=== PATIENT | male | born 1950 | race Two or more races ===

== ENCOUNTER 2021-01-15 18:53 | Inpatient (IN) | payer MEDICARE, OTHER ==
[~2021-01-15] VITALS: Ht 182.9 cm; Wt 105.7 kg
[2021-01-15 19:41] LABS: Basophils # (auto) 0 10 ^3/uL (0-0.2); Basophils % (auto) 0.3 % (0.0-2.0); Eosinophils # (auto) 0 10 ^3/uL (0-0.8); Eosinophils % (auto) 0.3 % (0.0-7.0); Hematocrit 38.1 % (41.0-53.0); Hemoglobin 12.5 g/dL (13.5-17.5); Lymphocytes # (auto) 0.7 10 ^3/uL (0.4-5.4); Lymphocytes % (auto) 5.7 % (10.0-50.0); Mean Corpuscular Hemoglobin 31.6 pg (28.0-32.0); Mean Corpuscular Volume 95.8 fL (80.0-100.0); Monocytes # (auto) 1.4 10 ^3/uL (0-1.3); Monocytes % (auto) 10.8 % (0.0-12.0); Neutrophils # (auto) 10.6 10 ^3/uL (1.6-8.6); Neutrophils % (auto) 82.9 % (37.0-80.0); Red Blood Cells 3.97 10^6/uL (4.5-5.90); Red Cell Distribution Width 13.9 % (11.8-14.3); White Blood Cell 12.8 10^3/uL (4.4-10.8)
[2021-01-15 20:28] LABS: Albumin 3.3 g/dL (3.4-5.0); Anion Gap 6 (5-15); Blood Alcohol < 3.0 mg/dL (0-5); Blood Urea Nitrogen 12 mg/dL (7-18); Calcium 8.7 mg/dL (8.5-10.1); Carbon Dioxide 22 mmol/L (21-32); Chloride 108 mmol/L (98-107); Glucose 197 mg/dL (74-106); Potassium 3.8 mmol/L (3.5-5.1); Sodium 136 mmol/L (136-145)
[2021-01-15 20:34] LABS: Alanine Aminotransferase 26 U/L (16-61); Alkaline Phosphatase 108 U/L (45-117); Aspartate Aminotransferase 19 U/L (15-37); BUN/Creatinine Ratio 16.9; GFR African American 141 mL/min; GFR Non-African American 117 mL/min; Total Protein 6.7 g/dL (6.4-8.2)
[2021-01-15] MEDS ORDERED: SODIUM CHLORIDE 0.9% 1,000 ML IV ONE (22:45)
[2021-01-15 23:34] LABS: Urine Bacteria FEW /hpf (None Seen); Urine Blood Negative /uL (Negative); Urine Mucus FEW (None Seen); Urine Specific Gravity 1.018 (1.001-1.035); Urine WBC 19 /hpf (0 - 3)
[2021-01-16 00:03] LABS: Alcohol, Urine < 3.0 mg/dL (0-10); Amphetamine Screen, Urine NEGATIVE (NEGATIVE); Barbiturate Scree,Urine NEGATIVE (NEGATIVE); Benzodiazephine Screen, Urine NEGATIVE (NEGATIVE); Cannabinoid Screen, Urine NEGATIVE (NEGATIVE); Cocaine Screen, Urine NEGATIVE (NEGATIVE); Opiate Scree,Urine NEGATIVE (NEGATIVE); Phencyclidine Screen, Urine NEGATIVE (NEGATIVE)
[2021-01-16] MEDS ORDERED: cefTRIAXone 1GM/50ML D5W 50 ML IV ONE ×2 (00:15→11:15)
[2021-01-16] MEDS ORDERED: DEXTROSE (50%) 50ML SYRG IV PRN (01:00)
[2021-01-16] MEDS ORDERED: TEMAZEPAM 15 MG CAP PO PRN (01:00)
[2021-01-16] MEDS ORDERED: METOPROLOL SUCCINATE XL 50 MG TAB PO ONE (01:00)
[2021-01-16] MEDS ORDERED: ONDANSETRON HCL 4 MG/2 ML VIAL IV PRN (01:00)
[2021-01-16 02:01] LABS: INR 1.26 (0.9-1.15); Partial Thromboplastin Time 29.3 sec (23.6-33.0)
[2021-01-16 04:35] VITALS: BP 128/82
[2021-01-16 04:42] VITALS: BP 128/82
[2021-01-16] MEDS: InsuLIN REG 1unit/0.01ml Soln (100units/ml) SC SCH ×4 (07:00→22:25)
[2021-01-16] MEDS: ACCU-CHEK COMFORT CURVE STRIP VI SCH ×4 (07:00→22:23)
[2021-01-16 08:00] VITALS: BP 128/75
[2021-01-16] MEDS ORDERED: LOSA25TA38 PO (10:24)
[2021-01-16] MEDS ORDERED: OXYC-648 PO (10:24)
[2021-01-16] MEDS ORDERED: LOSA-69 PO (10:24)
[2021-01-16] MEDS ORDERED: PREG100C PO (10:24)
[2021-01-16] MEDS ORDERED: PANT40T PO (10:24)
[2021-01-16] MEDS ORDERED: TAMS0.4C36 PO (10:24)
[2021-01-16] MEDS ORDERED: ATOR10TA52 PO (10:24)
[2021-01-16] MEDS ORDERED: APIX5TAB PO (10:24)
[2021-01-16] MEDS ORDERED: OXY5T PO ×2 (10:24→16:21)
[2021-01-16] MEDS ORDERED: GLIP5TAB12 PO (10:24)
[2021-01-16] MEDS ORDERED: oxyCODONE ER 10 MG TAB PO ONE (10:45)
[2021-01-16] MEDS: APIXABAN 5 MG TAB PO SCH ×2 (11:25→22:23)
[2021-01-16] MEDS: METOPROLOL SUCCINATE XL 50 MG TAB PO SCH (11:25)
[2021-01-16] MEDS: PANTOPRAZOLE 40 MG TAB PO SCH (11:25)
[2021-01-16] MEDS: LOSARTAN POTASSIUM 50 MG TAB PO SCH (11:45)
[2021-01-16 14:00] VITALS: BP 106/71
[2021-01-16] MEDS: PREGABALIN 25 MG CAP PO SCH ×2 (14:20→22:24)
[2021-01-16] MEDS ORDERED: TOPI15CA10 PO (16:34)
[2021-01-16] MEDS ORDERED: TOPI25TA43 PO (16:36)
[2021-01-16 17:00] VITALS: BP 129/83
[2021-01-16] MEDS ORDERED: TAMSULOSIN HYDROCHLORIDE 0.4 MG CAP PO SCH (18:00)
[2021-01-16 22:00] VITALS: BP 113/77
[2021-01-16] MEDS: oxyCODONE ER 10 MG TAB PO SCH (22:00)
[2021-01-16] MEDS ORDERED: ATORVASTATIN 20 MG TAB PO SCH (22:00)
[2021-01-17 05:42] VITALS: BP 105/76
[2021-01-17] MEDS: PREGABALIN 25 MG CAP PO SCH (06:28)
[2021-01-17] MEDS: InsuLIN REG 1unit/0.01ml Soln (100units/ml) SC SCH (06:29)
[2021-01-17] MEDS: ACCU-CHEK COMFORT CURVE STRIP VI SCH ×2 (06:30→14:44)
[2021-01-17 07:11] LABS: Basophils # (auto) 0 10 ^3/uL (0-0.2); Basophils % (auto) 0.5 % (0.0-2.0); Eosinophils # (auto) 0.1 10 ^3/uL (0-0.8); Eosinophils % (auto) 0.7 % (0.0-7.0); Hematocrit 35.6 % (41.0-53.0); Hemoglobin 12.4 g/dL (13.5-17.5); Lymphocytes # (auto) 0.7 10 ^3/uL (0.4-5.4); Lymphocytes % (auto) 6.3 % (10.0-50.0); Mean Corpuscular Hemoglobin 33.3 pg (28.0-32.0); Mean Corpuscular Hgb Conc. 34.7 g/dL (32.0-36.0); Monocytes # (auto) 1.4 10 ^3/uL (0-1.3); Monocytes % (auto) 13.1 % (0.0-12.0); Neutrophils # (auto) 8.3 10 ^3/uL (1.6-8.6); Neutrophils % (auto) 79.4 % (37.0-80.0); Nucleated Red Blood Cells % 0.1 %; Red Blood Cells 3.71 10^6/uL (4.5-5.90); Red Cell Distribution Width 13.5 % (11.8-14.3); White Blood Cell 10.4 10^3/uL (4.4-10.8)
[2021-01-17 07:28] LABS: BUN/Creatinine Ratio 17.5; Calcium 8.9 mg/dL (8.5-10.1); Magnesium 2.3 mg/dL (1.6-2.6); Potassium 3.9 mmol/L (3.5-5.1)
[2021-01-17 08:00] VITALS: BP 99/69
[2021-01-17] MEDS ORDERED: cefTRIAXone 1GM/50ML D5W 50 ML IV SCH (09:00)
[2021-01-17] MEDS: LOSARTAN POTASSIUM 50 MG TAB PO SCH (11:06)
[2021-01-17] MEDS: APIXABAN 5 MG TAB PO SCH (11:06)
[2021-01-17] MEDS: METOPROLOL SUCCINATE XL 50 MG TAB PO SCH (11:07)
[2021-01-17] MEDS: PANTOPRAZOLE 40 MG TAB PO SCH (11:07)
[2021-01-17] MEDS: oxyCODONE ER 10 MG TAB PO SCH (11:07)
[2021-01-17 14:12] VITALS: BP 123/72
== END 2021-01-17 15:00 | disposition home or self-care (01) | DRG 871 ==
LOC: EDUNIT# 18:53 → EDBD 18:53 → ER 18:57 → OVERFLOW 01-16 00:59 → CENTRAL 01-16 04:19
PROVIDERS: ADMIT Nurse Practitioner; ATTEND Internal Medicine
DX: A41.9 Sepsis, unspecified organism (principal); I50.31 Acute diastolic (congestive) heart failure; G92.8 Other toxic encephalopathy; N39.0 Urinary tract infection, site not specified; I48.20 Chronic atrial fibrillation, unspecified; D68.69 Other thrombophilia; D68.9 Coagulation defect, unspecified; E11.9 Type 2 diabetes mellitus without complications; E66.9 Obesity, unspecified; E78.5 Hyperlipidemia, unspecified; Z20.822 Contact with and (suspected) exposure to COVID-19; G89.4 Chronic pain syndrome; N40.0 Benign prostatic hyperplasia without lower urinary tract symptoms; I11.0 Hypertensive heart disease with heart failure; R09.89 Other specified symptoms and signs involving the circulatory and respiratory systems; Z80.0 Family history of malignant neoplasm of digestive organs; Z80.1 Family history of malignant neoplasm of trachea, bronchus and lung; Z82.49 Family history of ischemic heart disease and other diseases of the circulatory system; Z95.3 Presence of xenogenic heart valve; Z88.1 Allergy status to other antibiotic agents; Z88.5 Allergy status to narcotic agent; Z91.040 Latex allergy status; Z68.31 Body mass index [BMI] 31.0-31.9, adult
CPT/HCPCS: 36415; 70450; 71045; 80048; 80053; 80307; 80320; 81001; 82550; 82962; 83605; 83735; 83880; 84443; 84484; 85025; 85379; 85610; 85730; 87040; 87086; 87426; 93005; 93306; 96365; G0378; J0696; J1815

== ENCOUNTER 2024-03-15 18:29 | Inpatient (IN) | payer MEDICARE, BC ==
[~2024-03-15] VITALS: Ht 185.4 cm; Wt 97.4 kg
[~2024-03-15 18:29] MED LIST: APIX5TAB PO; ATOR10TA52 PO; GLIP5TAB21 PO; LOSA-533 PO; LOSA-534 PO; OXY5T PO; OXYC-648 PO; PANT40T PO; PREG100C PO; TAMS0.4C39 PO; TOPI15CA10 PO; TOPI25TA43 PO
--- NOTE | 2024-03-15 18:51 | ED.PDOC ---
History of Present Illness HPI Comments 74 male went down for nap around 1pm. He woke up with AMS. Per ems GCS was 7 on their arrival and he was in SVT. Was given adenosine 6 then 12 then converted to sinus. BGC was 20. He was given D50 250mL. At this time patient states he feels good. Has no complaints. Denies weakness, cp, sob, palpitations, recent illness though he did suffer from stroke around thanksgiving time. Patient takes glyburide. He at a sandwich and some crackers before his nap at 1pm. Time Seen by MD: 18:44 Primary Care Provider: MALLORIE Allergies: Coded Allergies: Acetaminophen (Verified Allergy, Unknown, 01/15/21) Hydrocodone (Verified Allergy, Unknown, 01/15/21) Latex (Verified Allergy, Unknown, 01/15/21) Penicillins (Verified Allergy, Unknown, 03/15/24) Uncoded Allergies: SHELLFISH (Allergy, Unknown, 03/15/24) Home Meds Reported Medications Topiramate (Topamax) 25 Mg Tab, 1 TAB PO BID, #60 TAB 2 Refills 01/16/21 Topiramate (Topiramate) 15 Mg Cap, 25 MG PO DAILY@DINNER, CAP 01/16/21 Oxycodone Hcl (OXYCODONE HCL) 5 Mg Tb, 7.5 MG PO BIDP PRN for PAIN SCALE 7 THRU 10, #1.5 TAB 01/16/21 Pregabalin (Lyrica) 100 Mg Cap, 1 CAP PO TID, #90 CAP 2 Refills 01/16/21 Oxycodone HCl (Oxycodone HCl ER) 15 Mg Tab, 15 MG PO BIDP, TAB 01/16/21 Tamsulosin Hcl (Tamsulosin Hcl) 0.4 Mg Cap, 0.4 MG PO QPM for 30 Days, MG 01/16/21 Glipizide (Glipizide) 5 Mg Tab, 5 MG PO DAILY for 30 Days, MG 01/16/21 Pantoprazole Sodium Sesquihydr (Pantoprazole Sodium) 40 Mg Tab, 40 MG PO DAILY, TAB 01/16/21 Losartan Potassium (Losartan Potassium) 25 Mg Tab, 25 MG PO QPM for 30 Days, MG 01/16/21 Losartan Potassium (Losartan Potassium) 50 Mg Tab, 50 MG PO QAM for 30 Days, MG 01/16/21 Atorvastatin Calcium (ATORVASTATIN CALCIUM) 10 Mg Tab, 1 TAB PO HS, #30 TAB 5 Refills 01/16/21 Apixaban Base (ELIQUIS) 5 Mg Tab, 5 MG PO BID, TAB 01/16/21 Review of Systems: REVIEW OF SYSTEMS: No fever, no chills, or fatigue HEENT: No sore throat, no earache, no congestion, no neck pain. Cardiac: No chest pain. No palpitations. Lungs: No shortness of breath, no cough. GI: No nausea, no vomiting, no diarrhea, no constipation, no abdominal pain : No dysuria, frequency, or urgency. No hematuria. Musculoskeletal: No joint pain , no joint swelling, no extremity edema. Skin: No rash, no itching. Neuro: No headache, no dizziness, no weakness Vital Signs Vital Signs Date Time Temp Pulse Resp B/P (MAP) Pulse Ox O2 Delivery O2 Flow Rate FiO2 03/15/24 20:08 98.7 90 16 138/60 (86) 89 98.7 Physical Exam General: Awake, alert and oriented. No acute distress. Skin: Skin in warm, dry and intact. Appropriate color for ethnicity. Nailbeds pink with no cyanosis. HEENT: The head is normocephalic and atraumatic. Conjunctivae are clear without exudates or hemorrhage. Sclera is non-icteric. EOM are intact. No signs of nystagmus. Eyelids are normal in appearance without swelling or lesions. Oral mucosa is pink and moist Neck: The neck is supple with normal range of motion. No JVD. Cardiac: Heart rate and rhythm are normal. No murmurs, gallops, or rubs are auscultated. Respiratory: No signs of respiratory distress. Lung sounds are clear in all lobes bilaterally without rales, ronchi, or wheezes. Abdominal: Abdomen is soft, non-tender without distention. Bowel sounds are present and normoactive in all four quadrants. Extremities: Upper and lower extremities are atraumatic in appearance without deformity or edema. Neurological: The patient is awake, alert and oriented to person, place, and time with normal speech. Speech is clear. There is no facial asymmetry. Psychiatric: Appropriate mood and affect. Good judgement and insight. No visual or auditory hallucinations. Past Medical History PAST MEDICAL HISTORY: AFIB, DM Surgical History: Denies all surgeries Family History Family History: Reviewed,noncontributory to illness Social History Smoker: Non-Smoker Alcohol: Denies ETOH Use Drugs: Denies Drug Use Lives In: Home Was a procedure done? Was a procedure done?: No Differential Dx Considerations may include: Hypoglycemia CVA, medication overdose, dehydration, CKD, other X-Ray, Labs, Meds, VS Vital Signs Date Time Temp Pulse Resp B/P (MAP) Pulse Ox O2 Delivery O2 Flow Rate FiO2 03/15/24 20:08 98.7 90 16 138/60 (86) 89 98.7 03/15/24 18:51 84 03/15/24 18:29 98.3 97 16 119/81 (94) 90 Lab Test 03/15/24 20:04 03/15/24 19:24 03/15/24 19:11 03/15/24 19:00 Range/Units Troponin I High Sensitivity 22 20 </=54 ng/L POC Glucose 99 75 70-106 mg/dl White Blood Count 9.7 4.4-10.8 10^3/uL Red Blood Count 2.65 L 4.5-5.90 10^6/uL Hemoglobin 9.2 L 13.5-17.5 g/dL Hematocrit 28.7 L 41.0-53.0 % Mean Corpuscular Volume 108.3 H 80.0-100.0 fL Mean Corpuscular Hemoglobin 34.7 H 28.0-32.0 pg Mean Corpuscular Hemoglobin Concent 32.1 32.0-36.0 g/dL Red Cell Distribution Width 18.4 H 11.8-14.3 % Platelet Count 161 140-450 10^3/uL Mean Platelet Volume 11.2 H 6.9-10.8 fL Neutrophils (%) (Auto) 88.6 H 37.0-80.0 % Lymphocytes (%) (Auto) 4.8 L 10.0-50.0 % Monocytes (%) (Auto) 5.7 0.0-12.0 % Eosinophils (%) (Auto) 0.7 0.0-7.0 % Basophils (%) (Auto) 0.2 0.0-2.0 % Neutrophils # (Auto) 8.6 1.6-8.6 10 ^3/uL Lymphocytes # (Auto) 0.5 0.4-5.4 10 ^3/uL Monocytes # (Auto) 0.6 0-1.3 10 ^3/uL Eosinophils # (Auto) 0.1 0-0.8 10 ^3/uL Basophils # (Auto) 0 0-0.2 10 ^3/uL Nucleated Red Blood Cells 0.1 % Sodium Level 145 136-145 mmol/L Potassium Level 4.1 3.5-5.1 mmol/L Chloride Level 114 H 98-107 mmol/L Carbon Dioxide Level 25 20-31 mmol/L Anion Gap 6 5-15 Blood Urea Nitrogen 48 H 9-23 mg/dL Creatinine 2.11 H 0.700-1.30 mg/dL Glomerular Filtration Rate Calc 32 >90 mL/min BUN/Creatinine Ratio 22.7 H 10.0-20.0 Serum Glucose 284 H 74-106 mg/dL Calcium Level 8.9 8.7-10.4 mg/dL Total Bilirubin 0.4 0.2-1.0 mg/dL Aspartate Amino Transferase (AST) 19 13-40 U/L Alanine Aminotransferase (ALT) 15 7-40 U/L Alkaline Phosphatase 111 46-116 U/L Total Protein 5.9 5.7-8.2 g/dL Albumin 3.6 3.2-4.8 g/dL Test 03/15/24 18:48 Range/Units POC Glucose 60 L 70-106 mg/dl Current Medications Medications (Trade) Dose Ordered Sig/Radha Route Start Time Stop Time Status Last Admin Dextrose 1,000 ml @ 100 mls/hr Q10H ONCE IV 03/15/24 19:00 03/16/24 04:59 03/15/24 19:04 Time of 1ST Reevaluation: 00:21 Reevaluation 1ST: N/A Patient Education/Counseling: Diagnosis, Treatment, Other Family Education/Counseling: No Family Present Departure 1 Departure Time of Disposition: 21:01 Impression: Primary Impression: ELIEL (acute kidney injury) Additional Impression: Hypoglycemia Disposition: ADMITTED INPATIENT Condition: Stable Comments 71-year-old male with hypoglycemia, blood sugar improved with treatment in the emergency department. Admitted for further treatment of ELIEL. The following tests were ordered, and results were reviewed by me: (See diagnostic results section) The following test were independently interpreted by me: N/A I reviewed and agreed with the following test results read by other providers: N/A I reviewed the following notes from the pt's past medical encounters: H ospitalization for metabolic encephalopathy 01/16/2021 Additional information was gathered from interviewing the following independent historians: EMS Discussion of management or test interpretation with external physician/other qualified health career agent: N/A Addressed an acute or chronic illness that poses a threat to life or bodily function: Hypoglycemia, acute kidney injury Decision regarding hospitalization or escalation of hospital level of care: Risk and benefits of admission for further treatment of patient's condition was considered. Due to patient's current clinical condition, high risk of decline and poor outcome if discharged and need for further inpatient management and monitoring, patient will be admitted to the hospital. Drug therapy requiring intensive monitoring for toxicity: D50W IV, D10 W IV Critical Care Note Critical Care Time?: No Stability Stability form required: NATA Nru MD Mar 15, 2024 18:51
[2024-03-15] MEDS: DEXTROSE 10% 1,000 ML IV ONE (19:04)
[2024-03-15 19:57] LABS: Alanine Aminotransferase 15 U/L (7-40); Albumin 3.6 g/dL (3.2-4.8); Alkaline Phosphatase 111 U/L (46-116); Anion Gap 6 (5-15); Aspartate Aminotransferase 19 U/L (13-40); BUN/Creatinine Ratio 22.7 (10.0-20.0); Calcium 8.9 mg/dL (8.7-10.4); Carbon Dioxide 25 mmol/L (20-31); Potassium 4.1 mmol/L (3.5-5.1); Sodium 145 mmol/L (136-145)
[2024-03-15 19:58] LABS: Bilirubin, Total 0.4 mg/dL (0.2-1.0); Total Protein 5.9 g/dL (5.7-8.2)
[2024-03-15 19:59] LABS: Blood Urea Nitrogen 48 mg/dL (9-23); Chloride 114 mmol/L (98-107); Glucose 284 mg/dL (74-106)
[2024-03-15 21:33] LABS: Basophils # (auto) 0 10 ^3/uL (0-0.2); Basophils % (auto) 0.2 % (0.0-2.0); Eosinophils # (auto) 0.1 10 ^3/uL (0-0.8); Eosinophils % (auto) 0.7 % (0.0-7.0); Hematocrit 28.7 % (41.0-53.0); Hemoglobin 9.2 g/dL (13.5-17.5); Lymphocytes # (auto) 0.5 10 ^3/uL (0.4-5.4); Lymphocytes % (auto) 4.8 % (10.0-50.0); Mean Corpuscular Hemoglobin 34.7 pg (28.0-32.0); Mean Corpuscular Hgb Conc. 32.1 g/dL (32.0-36.0); Mean Corpuscular Volume 108.3 fL (80.0-100.0); Monocytes # (auto) 0.6 10 ^3/uL (0-1.3); Monocytes % (auto) 5.7 % (0.0-12.0); Neutrophils # (auto) 8.6 10 ^3/uL (1.6-8.6); Neutrophils % (auto) 88.6 % (37.0-80.0); Nucleated Red Blood Cells % 0.1 %; Platelet Count (auto) 161 10^3/uL (140-450); Red Blood Cells 2.65 10^6/uL (4.5-5.90); Red Cell Distribution Width 18.4 % (11.8-14.3); White Blood Cell 9.7 10^3/uL (4.4-10.8)
[2024-03-15] MEDS: ATORVASTATIN 20 MG TAB PO SCH (22:00)
[2024-03-15] MEDS: APIXABAN 5 MG TAB PO SCH (22:00)
[2024-03-15] MEDS: TOPIRAMATE 25 MG TAB PO SCH (22:00)
[2024-03-15] MEDS ORDERED: DEXTROSE (50%) 50ML SYRG IV PRN (22:00)
[2024-03-15] MEDS ORDERED: ONDANSETRON HCL 4 MG/2 ML VIAL IV PRN (22:00)
[2024-03-15 23:51] VITALS: PULSE 88; RESP 17; O2SAT 90
--- NOTE | 2024-03-15 23:55 | DVHHP2 ---
History of Present Illness Reason for Visit: Altered mental status History of Present Illness 74-year-old male presents for evaluation of altered mental status. Patient was noted to be last the by his . He took a long nap from one till 5:00 p.m.. He was difficult to arouse so she called the paramedics. EN route patient's blood sugar was recorded as 20. No unilateral weakness or slurred speech noted. Patient is lethargic. No other acute complaints. Past Medical History Atrial fibrillation, dyslipidemia, diabetes mellitus, BPH Past Surgical History None Family History Noncontributory Smoke: No ALCOHOL: none Drugs: None Lives: with Family Review of Systems Review of Systems Review of systems are currently negative otherwise addressed in HPI. Allergies: Coded Allergies: Acetaminophen (Verified Allergy, Unknown, 01/15/21) Hydrocodone (Verified Allergy, Unknown, 01/15/21) Latex (Verified Allergy, Unknown, 01/15/21) Penicillins (Verified Allergy, Unknown, 03/15/24) Uncoded Allergies: SHELLFISH (Allergy, Unknown, 03/15/24) Medications Current Medications Medications Dose Ordered Sig/Radha Route Start Time Stop Time Status Last Admin Dose Admin Duloxetine HCl 60 mg DAILY PO 03/16/24 10:00 Tamsulosin HCl 0.4 mg QPM PO 03/16/24 18:00 Atorvastatin Calcium 80 mg HS PO 03/15/24 22:00 03/15/24 22:00 80 MG Metoprolol Succinate 50 mg DAILY PO 03/16/24 10:00 Aspirin 81 mg DAILY PO 03/16/24 10:00 Apixaban 5 mg BID PO 03/15/24 22:00 03/15/24 22:00 5 MG Diagnostic Test (Pha) 1 strip IQ4HR 03/16/24 00:00 Insulin Human Regular IQ4HR SC 03/16/24 00:00 Dextrose 50 ml UD PRN IV 03/15/24 22:00 Ondansetron HCl 4 mg Q4HP PRN IV 03/15/24 22:00 Topiramate 25 mg BID PO 03/15/24 22:00 03/15/24 22:00 25 MG Exam Vital Signs Vital Signs Date Time Temp Pulse Resp B/P (MAP) Pulse Ox O2 Delivery O2 Flow Rate FiO2 03/15/24 20:08 98.7 90 16 138/60 (86) 89 98.7 Exam Gen: 74-year-old male in mild distress Skin: Warm, dry, normal color and texture, no rash. HEENT: Normocephalic atraumatic, mucous membranes moist and pink. Neck: Cervical and supraclavicular nodes normal without enlargement, trachea is midline, thyroid gland is normal without masses. Pulmonary: Clear to auscultation and percussion bilaterally. Cardiac: Regular rate and rhythm. No murmur Abdomen: Soft, nontender, nondistended, bowel sounds present all 4 quadrants, no guarding, no rigidity, no organomegaly. Extremities: No cyanosis, clubbing, no edema Neuro: Cranial nerves II through XII grossly intact, lethargic, no focal deficits Labs/Xrays Labs Test 03/15/24 22:30 03/15/24 19:24 03/15/24 19:11 Range/Units Troponin I High Sensitivity 18 </=54 ng/L POC Glucose 99 70-106 mg/dl White Blood Count 9.7 4.4-10.8 10^3/uL Red Blood Count 2.65 L 4.5-5.90 10^6/uL Hemoglobin 9.2 L 13.5-17.5 g/dL Hematocrit 28.7 L 41.0-53.0 % Mean Corpuscular Volume 108.3 H 80.0-100.0 fL Mean Corpuscular Hemoglobin 34.7 H 28.0-32.0 pg Mean Corpuscular Hemoglobin Concent 32.1 32.0-36.0 g/dL Red Cell Distribution Width 18.4 H 11.8-14.3 % Platelet Count 161 140-450 10^3/uL Mean Platelet Volume 11.2 H 6.9-10.8 fL Neutrophils (%) (Auto) 88.6 H 37.0-80.0 % Lymphocytes (%) (Auto) 4.8 L 10.0-50.0 % Monocytes (%) (Auto) 5.7 0.0-12.0 % Eosinophils (%) (Auto) 0.7 0.0-7.0 % Basophils (%) (Auto) 0.2 0.0-2.0 % Neutrophils # (Auto) 8.6 1.6-8.6 10 ^3/uL Lymphocytes # (Auto) 0.5 0.4-5.4 10 ^3/uL Monocytes # (Auto) 0.6 0-1.3 10 ^3/uL Eosinophils # (Auto) 0.1 0-0.8 10 ^3/uL Basophils # (Auto) 0 0-0.2 10 ^3/uL Nucleated Red Blood Cells 0.1 % Sodium Level 145 136-145 mmol/L Potassium Level 4.1 3.5-5.1 mmol/L Chloride Level 114 H 98-107 mmol/L Carbon Dioxide Level 25 20-31 mmol/L Anion Gap 6 5-15 Blood Urea Nitrogen 48 H 9-23 mg/dL Creatinine 2.11 H 0.700-1.30 mg/dL Glomerular Filtration Rate Calc 32 >90 mL/min BUN/Creatinine Ratio 22.7 H 10.0-20.0 Serum Glucose 284 H 74-106 mg/dL Calcium Level 8.9 8.7-10.4 mg/dL Total Bilirubin 0.4 0.2-1.0 mg/dL Aspartate Amino Transferase (AST) 19 13-40 U/L Alanine Aminotransferase (ALT) 15 7-40 U/L Alkaline Phosphatase 111 46-116 U/L Total Protein 5.9 5.7-8.2 g/dL Albumin 3.6 3.2-4.8 g/dL Assessment/Plan Assessment/Plan Assessment Metabolic encephalopathy Hypoglycemia Acute on chronic renal failure Diabetes mellitus Plan Admit the patient to [facility] to the hospitalist Nephrology consultation Resume home medications Continue treatment per orders. Plan discussed with: Spouse My Orders Orders - PHIL PANDA AGACNP Procedure Category Date Status Time Duloxetine Hcl PHA 03/16/24 In Process Capsule (Cymbalta 10:00 Tamsulosin PHA 03/16/24 In Process Hydrochloride (Flomax) 18:00 Atorvastatin (Lipitor) PHA 03/15/24 In Process 22:00 Metoprolol Xl PHA 03/16/24 In Process Succinate (Toprol Xl) 10:00 Aspirin Tablet PHA 03/16/24 In Process 10:00 Apixaban (Eliquis) PHA 03/15/24 In Process 22:00 *Dr. [facility] CONS 03/15/24 Transmitted -[place] 21:51 Basic Metabolic Panel LAB 03/16/24 Verified 04:00 Glucose Blood PHA 03/16/24 In Process (Accu-Chek Comfort 00:00 Insulin R (Human) PHA 03/16/24 In Process (Insulin R) 00:00 Dextrose 50% Syringe PHA 03/15/24 In Process 22:00 Admit ADMIT 03/15/24 Transmitted 21:51 Renal DIET 03/16/24 Transmitted Standard(2gna,3gk,Lopho) Breakfast Ondansetron Hcl PHA 03/15/24 In Process (Zofran) 22:00 Condition: Stable ROBBY 03/15/24 In Process 21:51 Bedrest With Bathroom ROBBY 03/15/24 In Process Privileg 21:51 Topiramate (Topamax) PHA 03/15/24 In Process 22:00 Urinalysis LAB 03/15/24 Logged 23:47 Urine Bacterial CHRISTIANO 03/15/24 Uncollected Culture 23:47 Date of Service: Mar 15, 2024 Billing Provider: PHIL PANDA Common Visit Codes: [id number] INP/OBS CARE (HIGH) PHIL PANDA Mar 15, 2024 23:55
[2024-03-16] VITALS (9 sets, daily range): BP systolic 93–135; BP diastolic 58–78; PULSE 73–130; RESP 14–20; TEMP 97.2–98.4; O2SAT 90–100
[2024-03-16] MEDS: InsuLIN REG 1unit/0.01ml Soln (100units/ml) SC SCH
[2024-03-16] MEDS: ACCU-CHEK COMFORT CURVE STRIP VI SCH (00:09)
[2024-03-16 00:43] LABS: Urine Amorphous Crystal FEW /hpf (None Seen); Urine Bacteria FEW /hpf (None Seen); Urine Blood 1+ /uL (Negative); Urine Clarity Turbid (Clear); Urine Color Light-Yellow (Yellow); Urine Mucus FEW (None Seen); Urine Protein, UAD TRACE (Negative); Urine Squamous Epithelial Cell FEW /hpf (<5); Urine Urobilinogen Normal (Negative); Urine WBC 77 /hpf (0 - 3); Urine WBC Clumps PRESENT /hpf (None Seen)
[2024-03-16] MEDS ORDERED: ATOR-47 PO (03:08)
[2024-03-16] MEDS ORDERED: DULO1CAP6 PO (03:08)
[2024-03-16] MEDS ORDERED: ASPI81CH59 PO (03:08)
[2024-03-16] MEDS ORDERED: GLIP2.5T9 PO (03:08)
[2024-03-16] MEDS ORDERED: PREG150C63 PO (03:08)
[2024-03-16] MEDS ORDERED: METO-289 PO (03:08)
[2024-03-16 07:16] LABS: Potassium 4.5 mmol/L (3.5-5.1)
[2024-03-16 07:17] LABS: Anion Gap 6 (5-15); Calcium 9.3 mg/dL (8.7-10.4); Carbon Dioxide 25 mmol/L (20-31)
[2024-03-16 07:22] LABS: BUN/Creatinine Ratio 19.2 (10.0-20.0)
[2024-03-16 07:25] LABS: Blood Urea Nitrogen 40 mg/dL (9-23); Chloride 115 mmol/L (98-107); Glucose 140 mg/dL (74-106); Sodium 146 mmol/L (136-145)
[2024-03-16 08:35] LABS: Blood Alcohol < 3.0 mg/dL (<10); Magnesium 1.7 mg/dL (1.6-2.6)
[2024-03-16 08:47] LABS: Amphetamine Screen, Urine Neg (NEGATIVE); Barbiturate Scree,Urine Neg (NEGATIVE); Benzodiazephine Screen, Urine Neg (NEGATIVE); Cannabinoid Screen, Urine Neg (NEGATIVE); Cocaine Screen, Urine Neg (NEGATIVE); Opiate Scree,Urine Neg (NEGATIVE); Phencyclidine Screen, Urine Neg (NEGATIVE)
[2024-03-16 08:50] LABS: INR 1.23 (0.9-1.15); Partial Thromboplastin Time 29.1 SEC (24.5-34.5); Prothrombin Time 12.8 sec (9.3-11.8)
[2024-03-16 08:53] LABS: Basophils # (auto) 0 10 ^3/uL (0-0.2); Basophils % (auto) 0.4 % (0.0-2.0); Eosinophils # (auto) 0.1 10 ^3/uL (0-0.8); Eosinophils % (auto) 1.3 % (0.0-7.0); Hemoglobin 9.1 g/dL (13.5-17.5); Lymphocytes # (auto) 0.9 10 ^3/uL (0.4-5.4); Lymphocytes % (auto) 9.4 % (10.0-50.0); Mean Corpuscular Hemoglobin 34.1 pg (28.0-32.0); Mean Corpuscular Hgb Conc. 31.4 g/dL (32.0-36.0); Mean Corpuscular Volume 108.7 fL (80.0-100.0); Monocytes % (auto) 9.9 % (0.0-12.0); Neutrophils # (auto) 7.8 10 ^3/uL (1.6-8.6); Nucleated Red Blood Cells % 0.2 %; Platelet Count (auto) 181 10^3/uL (140-450); Red Blood Cells 2.66 10^6/uL (4.5-5.90); Red Cell Distribution Width 17.9 % (11.8-14.3); White Blood Cell 9.9 10^3/uL (4.4-10.8)
--- NOTE | 2024-03-16 09:16 | DVH ---
EXAM: US KIDNEY HISTORY: ELIEL on CKD COMPARISON: None TECHNIQUE: Real-time ultrasound performed utilizing grayscale and color techniques. FINDINGS: RIGHT KIDNEY: 11.3 cm in length. No hydronephrosis or nephrolithiasis. No suspicious lesions ident ified. Increased echogenicity with decreased cortical thickness. LEFT KIDNEY: 11.4 cm in length. No hydronephrosis or nephrolithiasis. No suspicious lesions identi fied. Increased echogenicity. BLADDER: No mural thickening or focal lesion. No significant post void residual. OTHER: None. IMPRESSION: 1. No hydronephrosis bilaterally. 2. Findings suggestive of chronic kidney disease. HS:Y
[2024-03-16] MEDS: DULoxetine HCL 30 MG CAP PO SCH (10:00)
[2024-03-16] MEDS: ASPirin 81 mg TAB PO SCH (10:00)
[2024-03-16] MEDS: METOPROLOL SUCCINATE XL 50 MG TAB PO SCH (10:00)
--- NOTE | 2024-03-16 10:15 | DVH ---
CHEST RADIOGRAPH Indication: SOB Technique: Single frontal view of the chest was obtained Comparison: CHEST PORTABLE on DOS: 01/15/21, CHEST XRAY 1 VIEW on DOS: 01/15/21 FINDINGS: Lines and Tubes: None Lungs: Increased interstitial opacities. Chest Pleura: Small bilateral pleural effusions. No pneumothorax. Cardiomediastinal contours: Cardiomegaly Bones: No acute osseous abnormality. IMPRESSION: Cardiomegaly with CHF. Small bilateral pleural effusions.
--- NOTE | 2024-03-16 10:18 | DVH ---
EXAM: CT HEAD WITHOUT CONTRAST INDICATION: ALOC TECHNIQUE: CT of the head without intravenous contrast. Radiation Dose Information: CT Dose: CTDI volume is 48.44 mGy. Dose-length product is 912.82 mGy*cm The dose indicators for CT are the volume Computed Tomography (CT) Dose Index (CTDIvol) and the Dose Length Product (DLP), and are measured in units of mGy and mGy-cm, respectively. These indicators are not patient dose, but values generated from the CT scanner acquisition factors. The report includes radiation exposure data for exposures received during this examination. COMPARISON: HEAD WITHOUT CONTRAST on DOS: 01/15/21 FINDINGS: There is no evidence of acute intracranial hemorrhage, extra-axial collection, mass effect, midline s hift, herniation or hydrocephalus. The ventricles, sulci and cisterns are age appropriate. The pulido-white differentiation is intact. Patchy periventricular and subcortical white matter hypoattenuation is nonspecific but may be related to small vessel ischemic disease. The visualized paranasal sinuses and mastoid air cells are clear. The surrounding soft tissues and osseous structures are unremarkable. IMPRESSION: No acute intracranial abnormality.
[2024-03-16] MEDS: cefTRIAXone 1GM/50ML D5W 50 ML IV SCH (11:34)
--- NOTE | 2024-03-16 12:23 | DVHPNRES ---
Progress Note Date Seen: Mar 16, 2024 Resident Creating Document: DILCIA ARSHAD RESIDENT Medical Necessity Reason Pt with a Central, PICC or Fol: Yes The following are medically ne: Ambriz Catheter Subjective Review of Systems Todd Perry is a 74-year-old male with a PMH of AFib, dyslipidemia, type 2 DM, BPH, COPD, bovine aortic valve replacement, CHF, HTN, CVA recently presented to the ED accompanied by with the chief complaints of altered mental status since on the day of admission. Patient is poor historian, altered so history taken from , per patient recently diagnosed as stroke during February 21, after that he has been ambulating poorly with a walker and he does have history of renal problems since July for which she remembered as CKD stage 3. She reported 4-5 days back he had mechanical fall while ambulating but did not recall whether he hit his head or not, and for past couple of days he is being fully tired, yesterday afternoon after having lunch patient went to bed, at 5:00 p.m. he is unable to get up , altered so called EMS and measured blood glucose was 20 and his recalls some difficulty in urination yesterday. On my assessment his denies recent fever, nausea, vomiting, diarrhea, Fever, chest pain, abdominal per, and other acute associated symptoms. PMH: AFib, dyslipidemia, type 2 DM, BPH, COPD, bovine aortic valve replacement, CHF, HTN, CVA PSH: TAVR in 2018, right and left thoracotomy in different occasions,, multiple shoulder surgeries Family history: Reviewed, noncontributory Social history: Lives with family. Denies smoking, alcohol and other drug abuse Allergies: Acetaminophen, hydrocodone, latex, penicillin, shellfish Patient seen and examined at the bedside along with . Patient is still confused, unable to respond to questions. Patient is currently on 5-6 L O2 NC. Ordered head CT, echocardiogram. Patient is currently on Rocephin. head CT showed no acute changes, ordered MRI and carotid Doppler. Objective vital signs Vital Sign Date Time Temp Pulse Resp B/P (MAP) Pulse Ox O2 Delivery O2 Flow Rate FiO2 03/16/24 09:00 97.3 96 20 134/78 (96) 100 97.3 03/16/24 02:59 Nasal Cannula* 4 36 Total Intake and Output 1203/15/24 03/16/24 15:00 23:00 07:00 Intake Total 0 ml Output Total 0 ml Balance 0 ml medications Current Medications Medications Dose Ordered Sig/Radha Route Start Time Stop Time Status Last Admin Dose Admin Duloxetine HCl 60 mg DAILY PO 03/16/24 10:00 Tamsulosin HCl 0.4 mg QPM PO 03/16/24 18:00 Atorvastatin Calcium 80 mg HS PO 03/15/24 22:00 03/15/24 22:00 80 MG Metoprolol Succinate 50 mg DAILY PO 03/16/24 10:00 Aspirin 81 mg DAILY PO 03/16/24 10:00 Diagnostic Test (Pha) 1 strip IQ4HR 03/16/24 00:00 03/16/24 11:23 1 STRIP Insulin Human Regular IQ4HR SC 03/16/24 00:00 03/16/24 04:38 3 UNITS Dextrose 50 ml UD PRN IV 03/15/24 22:00 Ondansetron HCl 4 mg Q4HP PRN IV 03/15/24 22:00 Topiramate 25 mg BID PO 03/15/24 22:00 03/15/24 22:00 25 MG Enoxaparin Sodium 90 mg Q12HR SC 03/16/24 10:00 Ceftriaxone Sodium 50 ml @ 100 mls/hr DAILY@09 IV 03/16/24 09:00 03/16/24 11:34 100 MLS/HR Azithromycin 250 ml @ 125 mls/hr DAILY IV 03/16/24 10:00 Examination Pt is lying on bed, limited exam due to patient clinical status General Appearance: unable to obtain orientation since patient is confused and poorly verbalizing HEENT: Atraumatic, Mucous membranes moist/pink Respiratory: Clear to auscultation, Normal air movement, mild crackles Cardiovascular: Irregular rate, Normal S1, Normal S2, No murmurs Abdominal: Active bowel sounds, Soft, no distention, no tenderness Extremities: No edema, Normal pulses, No tenderness/swelling Skin: No Significant rash, except past surgical scars Neuro: Normal speech, sensorimotor deficits none Psych/Mental Status: currently confused Nurse was there as Charperone during examination laboratory and microbiology Laboratory Tests 03/16/24 06:48 Test 03/16/24 06:48 Range/Units Serum Glucose 140 #H 74-106 mg/dL Labs and/or images reviewed: Labs reviewed by me, Image(s) reviewed by me Problem List/Assessment/Plan Problem List/Assessment/Plan # rule out acute CVA # acute toxic or metabolic encephalopathy likely due to CVA versus UTI vs hypogicemia # hypoglycemia on presentation - ordered head CT, no acute abnormalities - ordered brain MRI and carotid Doppler - ordered UDS, negative - monitor lab # Acute complicated UTI - evident on urinalysis - ordered urine bacterial culture - currently giving Rocephin # ELIEL likely VMN on CKD - monitor lab - ordered kidney ultrasound - consulted nephrology # type 2 DM - continuously monitor - currently on Accu-Cheks and moderate ISS # acute versus chronic, systolic versus diastolic CHF - ordered new echocardiogram pending - strict I&Os - fluid restriction Lovenox for now Protonix To keep NPO Reconciled home meds Goals of care discussed with the patient and family for more than 27 minutes: Full code status Case management discussed with Dr. Nash, patient, Family and nurse Plan discussed with: Patient My Orders My Orders Orders - DILCIA ARSHAD RESIDENT Procedure Category Date Status Time Pt Request For Service PT 03/16/24 Logged 08:57 Ceftriaxone 1gm/50ml PHA 03/16/24 In Process D5w (Rocephin) 09:00 Npo (Nothing By DIET 03/16/24 Transmitted Mouth) Diet Breakfast Azithromycin 500mg/ PHA 03/16/24 In Process 250ml (Zithromax 50 10:00 * Swallow Request ST 03/16/24 Transmitted 11:19 Transfer Orders XFER 03/16/24 Transmitted 11:24 Brain Head Wo Contrast MRI 03/16/24 Logged 11:24 Carotid Duplx W Color US 03/16/24 Logged DOP 11:24 Date of Service: Mar 16, 2024 Billing Provider: SOLEDAD NASH MD Common Visit Codes: [id number] INP/OBS CARE(HIGH) DILCIA ARSHAD RESIDENT Mar 16, 2024 12:23 SOLEDAD NASH MD Mar 20, 2024 18:31
--- NOTE | 2024-03-16 13:00 | DVH ---
CAROTID ARTERIAL DOPPLER CLINICAL HISTORY: stroke TECHNIQUE: Doppler study of bilateral carotid/vertebral arteries were performed. Comparison: None FINDINGS: There are nonocclusive atheromatous plaques in the bilateral carotid bulbs. The bilateral common ibrahim tid, external and internal carotid arteries appear patent without hemodynamically significant stenosi s. The spectral wave forms and peak systolic velocities are within normal limits. Antegrade flow is present within the vertebral arteries with appropriate velocities and waveforms. Right ICA/CCA PSV ratio = 1.0. Left ICA/CCA PSV ratio = 0.9 . IMPRESSION: 1. No hemodynamically significant stenosis within the carotid arteries. HS:Y
[2024-03-16] MEDS: ENOXAPARIN SOD 100 MG/1 ML SYRINGE SC SCH (13:13)
[2024-03-16] MEDS: AZITHROMYCIN 500MG/ 250ML 250 ML IV SCH (13:29)
--- NOTE | 2024-03-16 13:42 | DVHSR ---
APPROVED REPORT EXAM: LIMITED Two-dimensional and M-mode echocardiogram with Doppler and color Doppler. Blood Pressure: 117/77 mmHg INDICATION CHF RISK FACTORS Obesity: Height: 6'1, Weight: 194 Stroke DIMENSIONS LVDd4.3 (3.8-5.7cm)LA (2D)5.1 (1.9-4.0cm)Aortic Root3.5 (2.0-3.7cm) LVDs3.6 (2.5-4.0cm)LA (MM) (1.9-4.0cm)Aortic Cusp Exc1.0 (1.5-2.0cm) EF (%) 50.0 (55-70%)Rt. Atrium4.2 (1.9-4.0cm)Asc. Aorta4.3 cm IVSd1.4 (0.7-1.1cm)RV (D) (1.8-2.4cm) PWd1.1 (0.7-1.1cm) Mitral Valve MitralMitral Stenosis E wave1.01m/sMV Mean GR.mmHg A wave0.01m/sMV Peak GR.mmHg E/A .02D MVAcm2 DECEL [id number] 1/2 Timems Aortic Valve Aortic ValveAortic Stenosis LVOT Diameter2.5 (1.8-2.4cm)Doppler AVAcm2 Pulmonic Valve V20.69m/s Tricuspid Valve TR Velocity2.39m/s [id number] Other Information Quality : LimitedRhythm : Technically limited study due to PT UNABLE TO MOVE Conclusion Limited images due to patient body habitus. Overall grossly normal left ventricular systolic function at 50%. Normal right ventricular size and dimension. Normal biatrial size and dimension. The aortic valve is thickened and calcific, high likelihood of severe aortic valve stenosis but no gr adient or valve area measurement were done due to poor Doppler signal. The mitral valve is thickened there is mild mitral valve regurgitation. The tricuspid valve appears grossly normal. The pulmonary valve could not be visualized. No significant pericardial effusion.
[2024-03-16] MEDS: TAMSULOSIN HYDROCHLORIDE 0.4 MG CAP PO SCH (16:27)
[2024-03-16] MEDS: FUROSEMIDE 40 MG/4 ML VIAL IV ONE (17:00)
--- NOTE | 2024-03-16 17:04 | DVHINCON2 ---
Date of service: Mar 16, 2024 Reason for Consultation Acute kidney injury History of Present Illness 74 years old male with past medical history of Chronic kidney disease IIIb, hypertension, diabetes, TAVR, COPD, CVA, AFib, thoracotomy, shoulder surgeries, presented with chief complaints of altered mental status for the past one day patient had recently CVA, he also had recent prolonged hospitalization in [facility] at that time his creatinine was greater than three as per the bedside in December 24, 2023 Patient is a poor historian has purposeless movements not coherent when EMS came he was found to be hypoglycemic Past Medical History As per HPI Past Surgical History As per HPI Allergies: Coded Allergies: Acetaminophen (Verified Allergy, Unknown, 01/15/21) Hydrocodone (Verified Allergy, Unknown, 01/15/21) Latex (Verified Allergy, Unknown, 01/15/21) Penicillins (Verified Allergy, Unknown, 03/15/24) Uncoded Allergies: SHELLFISH (Allergy, Unknown, 03/15/24) Home Meds Reported Medications Pregabalin (Pregabalin) 150 Mg Cap, 1 CAP PO TID 03/16/24 Metoprolol Succinate (Metoprolol Succinate Er) 50 Mg Tab, 1 TAB PO DAILY IF NEEDED FOR FAST HR, TAKE ADDITIONAL 25 MG. 03/16/24 Duloxetine HCl (Duloxetine HCl) 60 Mg Cap, 60 MG PO BID 03/16/24 Glipizide (Glipizide Er) 2.5 Mg Tab, 1 TAB PO DAILY 03/16/24 Atorvastatin Calcium (ATORVASTATIN CALCIUM) 80 Mg Tab, 1 TAB PO 03/16/24 Aspirin (Aspirin Low Dose) 81 Mg Chw, 1 TAB PO DAILY 03/16/24 Topiramate (Topamax) 25 Mg Tab, 1 TAB PO BID, #60 TAB 2 Refills 01/16/21 Tamsulosin Hcl (Tamsulosin Hcl) 0.4 Mg Cap, 0.4 MG PO QPM for 30 Days, MG 01/16/21 Pantoprazole Sodium Sesquihydr (Pantoprazole Sodium) 40 Mg Tab, 40 MG PO DAILY, TAB 01/16/21 Apixaban Base (ELIQUIS) 5 Mg Tab, 5 MG PO BID, TAB 01/16/21 Current Medications Current Medications Medications (Trade) Dose Ordered Sig/Radha Route PRN Reason Start Time Stop Time Status Last Admin Duloxetine HCl (Cymbalta Capsule) 60 mg DAILY PO 03/16/24 10:00 Tamsulosin HCl (Flomax) 0.4 mg QPM PO 03/16/24 18:00 Atorvastatin Calcium (Lipitor) 80 mg HS PO 03/15/24 22:00 03/15/24 22:00 Metoprolol Succinate (Toprol Xl) 50 mg DAILY PO 03/16/24 10:00 Aspirin 81 mg DAILY PO 03/16/24 10:00 Apixaban (Eliquis) 5 mg BID PO 03/15/24 22:00 03/16/24 08:19 DC 03/15/24 22:00 Diagnostic Test (Pha) (Accu-Chek Comfort Curve T) 1 strip IQ4HR 03/16/24 00:00 03/16/24 16:26 Insulin Human Regular (InsuLIN R) IQ4HR SC 03/16/24 00:00 03/16/24 04:38 Dextrose 50 ml UD PRN IV Blood Sugar LESS THAN 60 03/15/24 22:00 Ondansetron HCl (Zofran) 4 mg Q4HP PRN IV NAUSEA / VOMITING 03/15/24 22:00 Topiramate (Topamax) 25 mg BID PO 03/15/24 22:00 03/15/24 22:00 Enoxaparin Sodium (Lovenox) 90 mg Q12HR SC 03/16/24 10:00 03/16/24 13:13 Ceftriaxone Sodium 50 ml @ 100 mls/hr DAILY@09 IV 03/16/24 09:00 03/16/24 11:34 Azithromycin 250 ml @ 125 mls/hr DAILY IV 03/16/24 10:00 03/16/24 13:29 Furosemide (Lasix Injection) 40 mg DAILY IV 03/17/24 10:00 UNV Family History: Alcoholism FH: heart attack G8 MOTHER G8 FATHER FH: lung cancer G8 BROTHER Rectal cancer GRANDFATHER Review of Systems Unable to obtain poor historian H&P Exam Vital Signs/I&O Vital Sign Date Time Temp Pulse Resp B/P (MAP) Pulse Ox O2 Delivery O2 Flow Rate FiO2 03/16/24 13:00 98.4 130 14 93/75 (81) 98 98.4 03/16/24 02:59 Nasal Cannula* 4 36 Intake and Output 03/15/24 03/16/24 19:00 07:00 Intake Total 0 ml Output Total 0 ml Balance 0 ml Intake Oral 0 ml Output Urine Total 0 ml Stool Total 0 ml Physical Exam General-not in any distress HEENT-normocephalic, no icterus, no pallor, neck supple Respiratory-fair air entry bilateral, minimal rales [id number] heard, positive murmur Abdominal-soft, nontender, nondistended Musculoskeletal-no pedal edema, no calf tenderness Genitourinary-deferred Neuro-awake not alert or oriented Psychiatric-not agitated, cooperative, Labs/Diagnostic Data Labs/Diagnostic Data Laboratory Tests Test 03/16/24 16:25 03/16/24 12:10 03/16/24 08:42 03/16/24 08:23 Range/Units POC Glucose 87 84 96 70-106 mg/dl Lactic Acid Level 0.8 0.4-2.0 mmol/L Ammonia 18 11-32 umol/L Test 03/16/24 06:48 03/16/24 04:19 03/16/24 00:28 03/16/24 00:08 Range/Units White Blood Count 9.9 4.4-10.8 10^3/uL Red Blood Count 2.66 L 4.5-5.90 10^6/uL Hemoglobin 9.1 L 13.5-17.5 g/dL Hematocrit 29.0 L 41.0-53.0 % Mean Corpuscular Volume 108.7 H 80.0-100.0 fL Mean Corpuscular Hemoglobin 34.1 H 28.0-32.0 pg Mean Corpuscular Hemoglobin Concent 31.4 L 32.0-36.0 g/dL Red Cell Distribution Width 17.9 H 11.8-14.3 % Platelet Count 181 140-450 10^3/uL Mean Platelet Volume 11.0 H 6.9-10.8 fL Neutrophils (%) (Auto) 79.0 37.0-80.0 % Lymphocytes (%) (Auto) 9.4 L 10.0-50.0 % Monocytes (%) (Auto) 9.9 0.0-12.0 % Eosinophils (%) (Auto) 1.3 0.0-7.0 % Basophils (%) (Auto) 0.4 0.0-2.0 % Neutrophils # (Auto) 7.8 1.6-8.6 10 ^3/uL Lymphocytes # (Auto) 0.9 0.4-5.4 10 ^3/uL Monocytes # (Auto) 1.0 0-1.3 10 ^3/uL Eosinophils # (Auto) 0.1 0-0.8 10 ^3/uL Basophils # (Auto) 0 0-0.2 10 ^3/uL Nucleated Red Blood Cells 0.2 % Prothrombin Time 12.8 H 9.3-11.8 sec Prothrombin Time INR 1.23 H 0.9-1.15 Activated Partial Thromboplast Time 29.1 24.5-34.5 SEC Sodium Level 146 H 136-145 mmol/L Potassium Level 4.5 3.5-5.1 mmol/L Chloride Level 115 H 98-107 mmol/L Carbon Dioxide Level 25 20-31 mmol/L Anion Gap 6 5-15 Blood Urea Nitrogen 40 H 9-23 mg/dL Creatinine 2.08 H 0.700-1.30 mg/dL Glomerular Filtration Rate Calc 33 >90 mL/min BUN/Creatinine Ratio 19.2 10.0-20.0 Serum Glucose 140 #H 74-106 mg/dL Hemoglobin A1c 5.5 <5.7 % A1C Calcium Level 9.3 8.7-10.4 mg/dL Magnesium Level 1.7 1.6-2.6 mg/dL B-Type Natriuretic Peptide 203.53 0-100 pg/mL Vitamin B12 Level 582 211-911 pg/mL Vitamin D 25-Hydroxy 40.2 30.0-100 ng/mL Thyroid Stimulating Hormone (TSH) 2.12 0.55-4.78 uIU/mL Plasma/Serum Blood Alcohol < 3.0 <10 mg/dL POC Glucose 192 H 243 H 70-106 mg/dl Urine Color Light-yellow Yellow Urine Clarity Turbid H Clear Urine pH 5.0 5.0-9.0 Urine Specific [place] 1.010 1.001-1.035 Urine Protein Trace H Negative Urine Ketones Negative Negative Urine Blood 1+ H Negative /uL Urine Nitrite Negative Negative Urine Bilirubin Negative Negative Urine Urobilinogen Normal Negative mg/dL Urine Leukocyte Esterase 3+ Negative /uL Urine RBC 16 0 - 3 /hpf Urine WBC 77 0 - 3 /hpf Urine WBC Clumps Present None Seen /hpf Urine Squamous Epithelial Cells Few <5 /hpf Urine Amorphous Crystals Few None Seen /hpf Urine Bacteria Few H None Seen /hpf Urine Mucus Few None Seen Urine Glucose 2+ H Normal mg/dL Urine Opiates Screen Neg NEGATIVE Urine Fentanyl Screen Neg NEGATIVE Urine Barbiturates Screen Neg NEGATIVE Urine Phencyclidine Screen Neg NEGATIVE Urine Amphetamines Screen Neg NEGATIVE Urine Benzodiazepines Screen Neg NEGATIVE Urine Cocaine Screen Neg NEGATIVE Urine Cannabinoids Screen Neg NEGATIVE Test 03/15/24 22:30 03/15/24 20:04 03/15/24 19:24 03/15/24 19:11 Range/Units Troponin I High Sensitivity 18 22 20 </=54 ng/L POC Glucose 99 70-106 mg/dl White Blood Count 9.7 4.4-10.8 10^3/uL Red Blood Count 2.65 L 4.5-5.90 10^6/uL Hemoglobin 9.2 L 13.5-17.5 g/dL Hematocrit 28.7 L 41.0-53.0 % Mean Corpuscular Volume 108.3 H 80.0-100.0 fL Mean Corpuscular Hemoglobin 34.7 H 28.0-32.0 pg Mean Corpuscular Hemoglobin Concent 32.1 32.0-36.0 g/dL Red Cell Distribution Width 18.4 H 11.8-14.3 % Platelet Count 161 140-450 10^3/uL Mean Platelet Volume 11.2 H 6.9-10.8 fL Neutrophils (%) (Auto) 88.6 H 37.0-80.0 % Lymphocytes (%) (Auto) 4.8 L 10.0-50.0 % Monocytes (%) (Auto) 5.7 0.0-12.0 % Eosinophils (%) (Auto) 0.7 0.0-7.0 % Basophils (%) (Auto) 0.2 0.0-2.0 % Neutrophils # (Auto) 8.6 1.6-8.6 10 ^3/uL Lymphocytes # (Auto) 0.5 0.4-5.4 10 ^3/uL Monocytes # (Auto) 0.6 0-1.3 10 ^3/uL Eosinophils # (Auto) 0.1 0-0.8 10 ^3/uL Basophils # (Auto) 0 0-0.2 10 ^3/uL Nucleated Red Blood Cells 0.1 % Sodium Level 145 136-145 mmol/L Potassium Level 4.1 3.5-5.1 mmol/L Chloride Level 114 H 98-107 mmol/L Carbon Dioxide Level 25 20-31 mmol/L Anion Gap 6 5-15 Blood Urea Nitrogen 48 H 9-23 mg/dL Creatinine 2.11 H 0.700-1.30 mg/dL Glomerular Filtration Rate Calc 32 >90 mL/min BUN/Creatinine Ratio 22.7 H 10.0-20.0 Serum Glucose 284 H 74-106 mg/dL Calcium Level 8.9 8.7-10.4 mg/dL Total Bilirubin 0.4 0.2-1.0 mg/dL Aspartate Amino Transferase (AST) 19 13-40 U/L Alanine Aminotransferase (ALT) 15 7-40 U/L Alkaline Phosphatase 111 46-116 U/L Total Protein 5.9 5.7-8.2 g/dL Albumin 3.6 3.2-4.8 g/dL Test 03/15/24 19:00 03/15/24 18:48 Range/Units POC Glucose 75 60 L 70-106 mg/dl Microbiology Date/Time Source Procedure Growth Status 03/16/24 03:30 Nose MRSA Screen - Final Complete Assessment Acute kidney injury on Chronic kidney disease IIIb hemodynamic mediated---follows Dr. Gupta Mild hypernatremia Acute hypoxic respiratory failure Encephalopathy likely metabolic/hypoglycemic---rule out cva CVA hx Hypertension DM Recommendations Chest x-ray appears congested IV Lasix as ordered Kidney ultrasound no hydronephrosis Monitor Is&Os Urine as ordered Patient had a baseline creatinine greater than three in December 24, 2023 per Plan discussed with: Patient, Spouse CATALINA REYNOSO MD Mar 16, 2024 17:04
[2024-03-16] MEDS: MAGNESIUM SULFATE 1GM/100ML 100 ML IV STA (18:30)
[2024-03-16 18:39] LABS: Potassium 4.6 mmol/L (3.5-5.1)
[2024-03-16] MEDS: METOPROLOL TARTRATE 1MG/1ML-5ML VIAL IV ONE (18:41)
[2024-03-16 18:45] LABS: Magnesium 1.7 mg/dL (1.6-2.6)
[2024-03-17] VITALS (8 sets, daily range): BP systolic 123–130; BP diastolic 74–85; PULSE 87–142; RESP 15–22; TEMP 97.2–98.6; O2SAT 92–100
[2024-03-17] MEDS: dilTIAZem 25 MG/5 ML VIAL IV ONE (01:34)
[2024-03-17] MEDS: MAGNESIUM SULFATE 1GM/100ML 100 ML IV ONE (03:13)
[2024-03-17 07:16] LABS: Basophils # (auto) 0.1 10 ^3/uL (0-0.2); Basophils % (auto) 0.6 % (0.0-2.0); Eosinophils # (auto) 0.1 10 ^3/uL (0-0.8); Hemoglobin 9.3 g/dL (13.5-17.5); Lymphocytes # (auto) 0.7 10 ^3/uL (0.4-5.4); Monocytes # (auto) 0.9 10 ^3/uL (0-1.3); Neutrophils # (auto) 8.5 10 ^3/uL (1.6-8.6); Neutrophils % (auto) 83.4 % (37.0-80.0); Red Blood Cells 2.66 10^6/uL (4.5-5.90); White Blood Cell 10.2 10^3/uL (4.4-10.8)
[2024-03-17 07:19] LABS: Eosinophils % (auto) 0.7 % (0.0-7.0); Lymphocytes % (auto) 6.5 % (10.0-50.0); Mean Corpuscular Hgb Conc. 32.1 g/dL (32.0-36.0); Monocytes % (auto) 8.8 % (0.0-12.0); Nucleated Red Blood Cells % 0.1 %; Platelet Count (auto) 165 10^3/uL (140-450); Red Cell Distribution Width 19.2 % (11.8-14.3)
[2024-03-17 07:20] LABS: Alanine Aminotransferase 20 U/L (7-40); Albumin 3.8 g/dL (3.2-4.8); Anion Gap 9 (5-15); Aspartate Aminotransferase 15 U/L (13-40); BUN/Creatinine Ratio 19.3 (10.0-20.0); Calcium 9.6 mg/dL (8.7-10.4); Carbon Dioxide 24 mmol/L (20-31); Magnesium 2.5 mg/dL (1.6-2.6); Potassium 4.6 mmol/L (3.5-5.1)
[2024-03-17 07:21] LABS: Bilirubin, Total 0.5 mg/dL (0.2-1.0); Total Protein 6.2 g/dL (5.7-8.2)
[2024-03-17 07:22] LABS: Alkaline Phosphatase 127 U/L (46-116); Blood Urea Nitrogen 36 mg/dL (9-23); Chloride 115 mmol/L (98-107); Glucose 184 mg/dL (74-106); Sodium 148 mmol/L (136-145)
--- NOTE | 2024-03-17 09:28 | ECG ---
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
[2024-03-17] MEDS: FUROSEMIDE 40 MG/4 ML VIAL IV SCH (10:13)
--- NOTE | 2024-03-17 10:37 | DVHPN2 ---
Progress Note - Dictate Date Seen: Mar 17, 2024 Medical Necessity Reason Pt with a Central, PICC or Fol: Yes The following are medically ne: Ambriz Catheter Subjective vitals stable vital signs Vital Sign Date Time Temp Pulse Resp B/P (MAP) Pulse Ox O2 Delivery O2 Flow Rate FiO2 03/17/24 10:13 140/79 03/17/24 09:20 98.4 100 17 92 98.4 03/17/24 08:00 Nasal Cannula* 6 44 Total Intake and Output 03/16/24 03/16/24 03/17/24 14:59 22:59 06:59 Intake Total 50 ml 250 ml 0 ml Output Total 400 ml Balance 50 ml -150 ml 0 ml medications Current Medications Medications Dose Ordered Sig/Radha Route Start Time Stop Time Status Last Admin Dose Admin Duloxetine HCl 60 mg DAILY PO 03/16/24 10:00 Tamsulosin HCl 0.4 mg QPM PO 03/16/24 18:00 Atorvastatin Calcium 80 mg HS PO 03/15/24 22:00 03/15/24 22:00 80 MG Aspirin 81 mg DAILY PO 03/16/24 10:00 Diagnostic Test (Pha) 1 strip IQ4HR 03/16/24 00:00 03/17/24 10:21 1 STRIP Insulin Human Regular IQ4HR SC 03/16/24 00:00 03/17/24 05:00 2 UNITS Dextrose 50 ml UD PRN IV 03/15/24 22:00 Ondansetron HCl 4 mg Q4HP PRN IV 03/15/24 22:00 Topiramate 25 mg BID PO 03/15/24 22:00 03/15/24 22:00 25 MG Enoxaparin Sodium 90 mg Q12HR SC 03/16/24 10:00 03/17/24 10:19 90 MG Ceftriaxone Sodium 50 ml @ 100 mls/hr DAILY@09 IV 03/16/24 09:00 03/17/24 10:09 100 MLS/HR Azithromycin 250 ml @ 125 mls/hr DAILY IV 03/16/24 10:00 03/17/24 10:20 125 MLS/HR Furosemide 40 mg DAILY IV 03/17/24 10:00 03/17/24 10:13 40 MG Metoprolol Tartrate 1.25 mg Q6HR IV 03/17/24 00:00 Dextrose 1,000 ml @ 50 mls/hr Q20H IV 03/17/24 10:30 UNV objective General-not in any distress HEENT-normocephalic, no icterus, no pallor, neck supple Respiratory-fair air entry bilateral, minimal rales [id number] heard, positive murmur Abdominal-soft, nontender, nondistended Musculoskeletal-no pedal edema, no calf tenderness Genitourinary-deferred Neuro-awake not alert or oriented Psychiatric-not agitated, cooperative, laboratory and microbiology Laboratory Tests 03/17/24 06:31 Test 03/17/24 06:31 Range/Units Serum Glucose 184 H 74-106 mg/dL Assessment/Plan Acute kidney injury on Chronic kidney disease IIIb hemodynamic mediated---follows Dr. Gupta Mild hypernatremia Acute hypoxic respiratory failure Encephalopathy likely metabolic/hypoglycemic---rule out cva CVA hx Hypertension DM anemia Recommendations Echo shows possible severe , rec cardiac eval IV Lasix anemia panel fluid restriction low salt diet Kidney ultrasound no hydronephrosis Monitor Is&Os Plan discussed with: Patient LESVIA PEREZ MD Mar 17, 2024 10:37
[2024-03-17] MEDS: METOPROLOL TARTRATE 1MG/1ML-5ML VIAL IV SCH ×2 (11:06→17:26)
[2024-03-17] MEDS: D5W 5% 1,000 ML IV SCH (12:40)
[2024-03-17] MEDS: LORazepam 2MG/ML-1ML VIAL IV ONE (14:30)
--- NOTE | 2024-03-17 15:43 | DVHPNRES ---
Progress Note Date Seen: Mar 17, 2024 Resident Creating Document: DILCIA ARSHAD RESIDENT Medical Necessity Reason Pt with a Central, PICC or Fol: Yes The following are medically ne: Ambriz Catheter Subjective Review of Systems Todd Perry is a 74-year-old male with a PMH of AFib, dyslipidemia, type 2 DM, BPH, COPD, bovine aortic valve replacement, CHF, HTN, CVA recently presented to the ED accompanied by with the chief complaints of altered mental status since on the day of admission Patient seen and examined at the bedside. Patient is still confused and poorly responding to questions. Patient is currently on 5 L oxygen NC. Unable to complete MRI due to patient is getting agitated. Due to AFib with RVR we increased the metoprolol dose. Nephrology consulted evaluated the patient, advised IV Lasix, fluid restriction, low-salt diet, monitor I&Os and to consult Cardiology for the evaluation of severe aortic stenosis. Consulted cardiology for further evaluation. Changes from previous H/P or p: No Changes Objective vital signs Vital Sign Date Time Temp Pulse Resp B/P (MAP) Pulse Ox O2 Delivery O2 Flow Rate FiO2 03/17/24 13:00 97.8 105 15 124/74 (91) 96 97.8 03/17/24 08:00 Nasal Cannula* 6 44 Total Intake and Output 03/16/24 03/16/24 03/17/24 15:00 23:00 07:00 Intake Total 50 ml 250 ml 0 ml Output Total 400 ml Balance 50 ml -150 ml 0 ml medications Current Medications Medications Dose Ordered Sig/Radha Route Start Time Stop Time Status Last Admin Dose Admin Duloxetine HCl 60 mg DAILY PO 03/16/24 10:00 Tamsulosin HCl 0.4 mg QPM PO 03/16/24 18:00 Atorvastatin Calcium 80 mg HS PO 03/15/24 22:00 03/15/24 22:00 80 MG Aspirin 81 mg DAILY PO 03/16/24 10:00 Diagnostic Test (Pha) 1 strip IQ4HR 03/16/24 00:00 03/17/24 12:26 1 STRIP Insulin Human Regular IQ4HR SC 03/16/24 00:00 03/17/24 12:27 3 UNITS Dextrose 50 ml UD PRN IV 03/15/24 22:00 Ondansetron HCl 4 mg Q4HP PRN IV 03/15/24 22:00 Topiramate 25 mg BID PO 03/15/24 22:00 03/15/24 22:00 25 MG Enoxaparin Sodium 90 mg Q12HR SC 03/16/24 10:00 03/17/24 10:19 90 MG Ceftriaxone Sodium 50 ml @ 100 mls/hr DAILY@09 IV 03/16/24 09:00 03/17/24 10:09 100 MLS/HR Azithromycin 250 ml @ 125 mls/hr DAILY IV 03/16/24 10:00 03/17/24 10:20 125 MLS/HR Furosemide 40 mg DAILY IV 03/17/24 10:00 03/17/24 10:13 40 MG Dextrose 1,000 ml @ 50 mls/hr Q20H IV 03/17/24 10:30 03/17/24 12:40 50 MLS/HR Metoprolol Tartrate 2.5 mg Q6HR IV 03/17/24 18:00 Examination Pt is lying on bed, limited exam due to patient clinical status General Appearance: unable to obtain orientation since patient is confused and poorly verbalizing HEENT: Atraumatic, Mucous membranes moist/pink Respiratory: Clear to auscultation, Normal air movement, mild crackles Cardiovascular: Irregular rate, Normal S1, Normal S2, No murmurs Abdominal: Active bowel sounds, Soft, no distention, no tenderness Extremities: No edema, Normal pulses, No tenderness/swelling Skin: No Significant rash, except past surgical scars Neuro: Normal speech, sensorimotor deficits none Psych/Mental Status: currently confused Nurse was there as [place] during examination laboratory and microbiology Laboratory Tests 03/17/24 06:31 Test 03/17/24 06:31 Range/Units Serum Glucose 184 H 74-106 mg/dL Microbiology Date/Time Source Procedure Growth Status 03/16/24 03:30 Nose MRSA Screen - Final Complete 03/16/24 00:28 Voided Urine Urine Culture - Preliminary Resulted Labs and/or images reviewed: Labs reviewed by me, Image(s) reviewed by me Problem List/Assessment/Plan Problem List/Assessment/Plan # rule out acute CVA # acute toxic or metabolic encephalopathy likely due to CVA versus UTI vs hypogicemia # hypoglycemia on presentation - ordered head CT, no acute abnormalities - ordered brain MRI unable to perform due to agitated - carotid Doppler no significant stenosis - ordered UDS, negative - monitor lab # Permanent AFib with RVR with secondary hypercoagulable state - continuously monitoring on telemetry - currently on Lovenox - currently on metoprolol 2.5 mg IV # Chronic, systolic versus diastolic CHF # H/O Bovine aortic valve replacement # ? Severe aortic stenosis - echocardiogram: LVEF 50% with Ritesh, calcified, severe aortic valve stenosis likely. - strict I&Os - fluid restriction - currently on Lasix 40 mg IV - Consulted cardiology for further evaluation. # Acute complicated UTI - evident on urinalysis - ordered urine bacterial culture - currently giving Rocephin # ELIEL likely VMN on CKD - monitor lab - ordered kidney ultrasound - Nephrology consulted evaluated the patient, advised IV Lasix, fluid restriction, low-salt diet, monitor I&Os # Uncontrolled type 2 DM - continuously monitor - currently on Accu-Cheks and moderate ISS Lovenox for now Protonix To keep NPO Reconciled home meds Goals of care discussed with the patient and family for more than 27 minutes: Full code status Case management discussed with Dr. Nash, patient, Family and nurse Plan discussed with: Patient My Orders My Orders Orders - DILCIA ARSHAD RESIDENT Procedure Category Date Status Time Npo (Nothing By DIET 03/16/24 Transmitted Mouth) Diet Dinner D5w 5% (Dextrose 5%) PHA 03/17/24 In Process 10:30 Complete Blood Count LAB 03/18/24 Verified 04:00 Date of Service: Mar 17, 2024 Billing Provider: SOLEDAD NASH MD Common Visit Codes: [id number] INP/OBS CARE(HIGH) DILCIA ARSHAD Mar 17, 2024 15:43 SOLEDAD NASH MD Mar 20, 2024 18:31
--- NOTE | 2024-03-17 17:29 | DVHINCON2 ---
Date Seen: Mar 17, 2024 Referring Physician MD Charity Reason for Consultation Aortic stenosis History of Present Illness This is a 74-year-old male patient who presents to emergency room with chief complaint of altered level of mentation. Per ER documentation, when the patient arrived to the emergency room his blood sugar was noted to be 20. The patient was lethargic at the time of emergency room arrival. At the time of assessment, the patient remains confused and unable to answer any questions. Attempted to call patient's as listed in chart, no answer. History obtained from past medical records and bedside RN. Cardiology has now been consulted at this time for aortic stenosis. Initial twelve lead electrocardiogram reveals atrial fibrillation with PVCs. Significant past medical history includes longstanding persistent atrial fibrillation (on Eliquis), history of Gallegos Maze procedure, bioprosthetic aortic valve replacement, hypertension, dyslipidemia, recent CVA, nam-vzfmjfv-zaubytogd type 2 diabetes mellitus, chronic kidney disease, and bed- bound. Unable to obtain if patient follows up with Cardiology in the outpatient setting. Past Medical History Past medical history reviewed. No other significant than mentioned above. Past Surgical History Gallegos Maze procedure, 2007 Bioprosthetic Aortic valve replacement, 2007 Family History: Alcoholism FH: heart attack G8 MOTHER G8 FATHER FH: lung cancer G8 BROTHER Rectal cancer GRANDFATHER Family History Family history reviewed. Social History Unable to obtain at this time Allergies: Coded Allergies: Acetaminophen (Verified Allergy, Unknown, 01/15/21) Hydrocodone (Verified Allergy, Unknown, 01/15/21) Latex (Verified Allergy, Unknown, 01/15/21) Penicillins (Verified Allergy, Unknown, 03/15/24) Uncoded Allergies: SHELLFISH (Allergy, Unknown, 03/15/24) Home Meds Reported Medications Pregabalin (Pregabalin) 150 Mg Cap, 1 CAP PO TID 03/16/24 Metoprolol Succinate (Metoprolol Succinate Er) 50 Mg Tab, 1 TAB PO DAILY IF NEEDED FOR FAST HR, TAKE ADDITIONAL 25 MG. 03/16/24 Duloxetine HCl (Duloxetine HCl) 60 Mg Cap, 60 MG PO BID 03/16/24 Glipizide (Glipizide Er) 2.5 Mg Tab, 1 TAB PO DAILY 03/16/24 Atorvastatin Calcium (ATORVASTATIN CALCIUM) 80 Mg Tab, 1 TAB PO 03/16/24 Aspirin (Aspirin Low Dose) 81 Mg Chw, 1 TAB PO DAILY 03/16/24 Topiramate (Topamax) 25 Mg Tab, 1 TAB PO BID, #60 TAB 2 Refills 01/16/21 Tamsulosin Hcl (Tamsulosin Hcl) 0.4 Mg Cap, 0.4 MG PO QPM for 30 Days, MG 01/16/21 Pantoprazole Sodium Sesquihydr (Pantoprazole Sodium) 40 Mg Tab, 40 MG PO DAILY, TAB 01/16/21 Apixaban Base (ELIQUIS) 5 Mg Tab, 5 MG PO BID, TAB 01/16/21 Home Meds Home medications reviewed. Current Medications Current Medications Medications (Trade) Dose Ordered Sig/Radha Route PRN Reason Start Time Stop Time Status Last Admin Tamsulosin HCl (Flomax) 0.4 mg QPM PO 03/16/24 18:00 Furosemide (Lasix Injection) 40 mg DAILY IV 03/17/24 10:00 03/17/24 10:13 Magnesium Sulfate/ Dextrose 100 ml @ 100 mls/hr Q1HR STAT IV 03/16/24 17:55 03/16/24 18:54 DC 03/16/24 18:30 Metoprolol Tartrate (Lopressor) 1.25 mg Q6HR IV 03/17/24 00:00 03/17/24 14:49 DC 03/17/24 11:06 Dextrose 1,000 ml @ 50 mls/hr Q20H IV 03/17/24 10:30 03/17/24 12:40 Metoprolol Tartrate (Lopressor) 2.5 mg Q6HR IV 03/17/24 18:00 03/17/24 17:26 Review of Systems Constitutional: No symptom reported Ears, Nose, & Throat: No symptom reported Eyes: No symptom reported Neurological: Altered level of mentation, lethargic Pulmonary/Respiratory: No symptoms reported Cardiovascular: No symptom reported Gastrointestinal: No symptom reported Genitourinary: No symptom reported Musculoskeletal: No symptom reported Skin: No symptom reported Psychiatric: No symptom reported Endocrine: No symptom reported Hematologic/Lymphatic: No symptom reported Vital Signs Vital Signs Date Time Temp Pulse Resp B/P (MAP) Pulse Ox O2 Delivery O2 Flow Rate FiO2 03/17/24 17:26 120 125/83 03/17/24 13:00 97.8 15 96 97.8 03/17/24 08:00 Nasal Cannula* 6 44 Physical Exam General Appearance: Calm, relaxed Pulmonary/Respiratory: Clear, bilateral breaths sounds. Cardiovascular/Chest: Irregular rate and rhythm Peripheral Pulses: 2+ Radial (R). 2+ Radial (L). 2+ Pedal (R). 2+ Pedal (L) Abdominal Exam: Normal bowel sounds. Ankle Exam: Negative ankle edema Lower extremities: Negative lower extremity edema Neuro/Mental Status: A/OX1, confused, mumbled speech Thoughts/Psych: Deferred Appearance: No acute distress. Skin Exam: Normal inspection. Normal color. Warm and dry. Labs/Diagnostic Data Labs Test 03/17/24 17:05 03/17/24 06:31 03/16/24 08:42 03/16/24 06:48 Range/Units POC Glucose 182 H 70-106 mg/dl White Blood Count 10.2 4.4-10.8 10^3/uL Red Blood Count 2.66 L 4.5-5.90 10^6/uL Hemoglobin 9.3 L 13.5-17.5 g/dL Hematocrit 29.0 L 41.0-53.0 % Mean Corpuscular Volume 109.0 H 80.0-100.0 fL Mean Corpuscular Hemoglobin 35.0 H 28.0-32.0 pg Mean Corpuscular Hemoglobin Concent 32.1 32.0-36.0 g/dL Red Cell Distribution Width 19.2 H 11.8-14.3 % Platelet Count 165 140-450 10^3/uL Mean Platelet Volume 10.8 6.9-10.8 fL Neutrophils (%) (Auto) 83.4 H 37.0-80.0 % Lymphocytes (%) (Auto) 6.5 L 10.0-50.0 % Monocytes (%) (Auto) 8.8 0.0-12.0 % Eosinophils (%) (Auto) 0.7 0.0-7.0 % Basophils (%) (Auto) 0.6 0.0-2.0 % Neutrophils # (Auto) 8.5 1.6-8.6 10 ^3/uL Lymphocytes # (Auto) 0.7 0.4-5.4 10 ^3/uL Monocytes # (Auto) 0.9 0-1.3 10 ^3/uL Eosinophils # (Auto) 0.1 0-0.8 10 ^3/uL Basophils # (Auto) 0.1 0-0.2 10 ^3/uL Nucleated Red Blood Cells 0.1 % Sodium Level 148 H 136-145 mmol/L Potassium Level 4.6 3.5-5.1 mmol/L Chloride Level 115 H 98-107 mmol/L Carbon Dioxide Level 24 20-31 mmol/L Anion Gap 9 5-15 Blood Urea Nitrogen 36 H 9-23 mg/dL Creatinine 1.87 H 0.700-1.30 mg/dL Glomerular Filtration Rate Calc 38 >90 mL/min BUN/Creatinine Ratio 19.3 10.0-20.0 Serum Glucose 184 H 74-106 mg/dL Calcium Level 9.6 8.7-10.4 mg/dL Magnesium Level 2.5 1.6-2.6 mg/dL Total Bilirubin 0.5 0.2-1.0 mg/dL Aspartate Amino Transferase (AST) 15 13-40 U/L Alanine Aminotransferase (ALT) 20 7-40 U/L Alkaline Phosphatase 127 H 46-116 U/L Total Protein 6.2 5.7-8.2 g/dL Albumin 3.8 3.2-4.8 g/dL Lactic Acid Level 0.8 0.4-2.0 mmol/L Ammonia 18 11-32 umol/L Prothrombin Time 12.8 H 9.3-11.8 sec Prothrombin Time INR 1.23 H 0.9-1.15 Activated Partial Thromboplast Time 29.1 24.5-34.5 SEC Hemoglobin A1c 5.5 <5.7 % A1C B-Type Natriuretic Peptide 203.53 0-100 pg/mL Vitamin B12 Level 582 211-911 pg/mL Vitamin D 25-Hydroxy 40.2 30.0-100 ng/mL Thyroid Stimulating Hormone (TSH) 2.12 0.55-4.78 uIU/mL Plasma/Serum Blood Alcohol < 3.0 <10 mg/dL Test 03/16/24 00:28 03/15/24 22:30 Range/Units Urine Color Light-yellow Yellow Urine Clarity Turbid H Clear Urine pH 5.0 5.0-9.0 Urine Specific [place]ner 1.010 1.001-1.035 Urine Protein Trace H Negative Urine Ketones Negative Negative Urine Blood 1+ H Negative /uL Urine Nitrite Negative Negative Urine Bilirubin Negative Negative Urine Urobilinogen Normal Negative mg/dL Urine Leukocyte Esterase 3+ Negative /uL Urine RBC 16 0 - 3 /hpf Urine WBC 77 0 - 3 /hpf Urine WBC Clumps Present None Seen /hpf Urine Squamous Epithelial Cells Few <5 /hpf Urine Amorphous Crystals Few None Seen /hpf Urine Bacteria Few H None Seen /hpf Urine Mucus Few None Seen Urine Glucose 2+ H Normal mg/dL Urine Opiates Screen Neg NEGATIVE Urine Fentanyl Screen Neg NEGATIVE Urine Barbiturates Screen Neg NEGATIVE Urine Phencyclidine Screen Neg NEGATIVE Urine Amphetamines Screen Neg NEGATIVE Urine Benzodiazepines Screen Neg NEGATIVE Urine Cocaine Screen Neg NEGATIVE Urine Cannabinoids Screen Neg NEGATIVE Troponin I High Sensitivity 18 </=54 ng/L Microbiology Date/Time Source Procedure Growth Status 03/16/24 03:30 Nose MRSA Screen - Final Complete 03/16/24 00:28 Voided Urine Urine Culture - Preliminary Resulted Assessment Severe aortic stenosis status post bioprosthetic aortic valve replacement in 2007 Persistent longstanding atrial fibrillation, Stage 3C, on NOAC Eliquis Rule out acute CVA Hypertension Dyslipidemia Status post Gallegos-maze procedure Chronic kidney disease [id number]-ysymwcwbb diabetes mellitus Bed-bound Plan/Recommendation We will continue with the following plan/recommendations (Dr. Clancy): Transthoracic echocardiogram for this admission reveals an EF of 50% with the aortic valve is thickened and calcified, with a high likelihood of severe aortic valve stenosis but no peak or mean gradient or valve area was measured to due to limited study. Case discussed with . Considering that there is no gradient or valve area measured, this is a limited study. Unable to confirm aortic valve stenosis. We will recommend a repeat transthoracic echocardiogram with appropriate peak/mean gradient and valve area measurements. At this time continue with conservative medical management. [id number] VASc score: 5 points, HAS-BLED score: 3 points. Recommend subcutaneous anticoagulation, transition back to NOAC when able to swallow, and beta-nola for rate control. Thank you for allowing us to care for this patient. Please call with any questions or concerns. Critical care time spent: 40 minutes This medical document was created using an electronic medical record system with voice recognition software and computerized dictation system. Although this document has been carefully reviewed, there might still be some phonetic and typographical errors. Occasional wrong-word or ``sound-alike substitutions may have occurred due to the inherent limitations of voice recognition software. These areas are purely typographical due to imperfections of the software programs and do not reflect any compromise in the patient's medical care. Please read the chart carefully and recognize, using context, where these substitutions have occurred. Plan discussed with: Other (Bedside RN) Date of Service: Mar 17, 2024 Billing Provider: ASHWINI DUKES Cardiology Common Codes: 37419-[id number] INP/OBS CARE (High) Cardiology Consultation Codes: [id number] CONSULT <45MIN ASHWINI DUKES Mar 17, 2024 17:29
[2024-03-18] VITALS (62 sets, daily range): BP systolic 85–159; BP diastolic 55–101; PULSE 59–140; RESP 7–23; TEMP 97.2–100.4; O2SAT 37–100
[2024-03-18 06:18] LABS: Hemoglobin 9.3 g/dL (13.5-17.5); Lymphocytes # (auto) 0.9 10 ^3/uL (0.4-5.4); Monocytes # (auto) 1.2 10 ^3/uL (0-1.3); Platelet Count (auto) 155 10^3/uL (140-450)
[2024-03-18 06:20] LABS: Basophils # (auto) 0 10 ^3/uL (0-0.2); Basophils % (auto) 0.3 % (0.0-2.0); Eosinophils # (auto) 0.1 10 ^3/uL (0-0.8); Eosinophils % (auto) 0.7 % (0.0-7.0); Hematocrit 29.4 % (41.0-53.0); Mean Corpuscular Hemoglobin 34.6 pg (28.0-32.0); Mean Corpuscular Hgb Conc. 31.6 g/dL (32.0-36.0); Mean Corpuscular Volume 109.6 fL (80.0-100.0); Monocytes % (auto) 12.1 % (0.0-12.0); Neutrophils # (auto) 7.5 10 ^3/uL (1.6-8.6); Neutrophils % (auto) 77.9 % (37.0-80.0); Nucleated Red Blood Cells % 0.2 %; Red Blood Cells 2.68 10^6/uL (4.5-5.90); Red Cell Distribution Width 17.9 % (11.8-14.3); White Blood Cell 9.6 10^3/uL (4.4-10.8)
[2024-03-18 06:29] LABS: Anion Gap 9 (5-15); Calcium 9.5 mg/dL (8.7-10.4); Carbon Dioxide 28 mmol/L (20-31); Potassium 4.4 mmol/L (3.5-5.1)
[2024-03-18 06:35] LABS: BUN/Creatinine Ratio 19.1 (10.0-20.0)
[2024-03-18 06:36] LABS: Blood Urea Nitrogen 41 mg/dL (9-23); Chloride 112 mmol/L (98-107); Glucose 155 mg/dL (74-106); Sodium 149 mmol/L (136-145)
[2024-03-18 06:37] LABS: % Iron Saturation 11.6 % (20-55)
[2024-03-18] MEDS: METOPROLOL TARTRATE 1MG/1ML-5ML VIAL IV ONE ×2 (08:13→08:22)
[2024-03-18] MEDS: ROCURONIUM 10MG/ML 10ML VIAL IV ONE (08:14)
[2024-03-18] MEDS: ETOMIDATE (2MG/ML) 20ML VIAL IV ONE ×2 (08:15→08:22)
[2024-03-18] MEDS: MIDAZOLAM DRIP 50 mg/50mL 50 ML IV SCH (08:33)
[2024-03-18] MEDS: fentaNYL Drip 2500mCg/250mlNS 250 ML IV SCH (08:33)
[2024-03-18 09:01] LABS: Base Excess -7.1 mmol/L (-2.0-3.0)
[2024-03-18] MEDS: AMIODARONE BOLUS KIT 100 ML IV ONE ×2 (09:08→09:10)
[2024-03-18 09:14] LABS: Alanine Aminotransferase 18 U/L (7-40); Albumin 3.8 g/dL (3.2-4.8); Anion Gap 10 (5-15); Aspartate Aminotransferase 17 U/L (13-40); BUN/Creatinine Ratio 19.6 (10.0-20.0); Calcium 9.5 mg/dL (8.7-10.4); Carbon Dioxide 25 mmol/L (20-31); Magnesium 2.4 mg/dL (1.6-2.6); Potassium 4.4 mmol/L (3.5-5.1)
[2024-03-18 09:15] LABS: Bilirubin, Total 0.4 mg/dL (0.2-1.0); Total Protein 6.7 g/dL (5.7-8.2)
[2024-03-18 09:16] LABS: Alkaline Phosphatase 134 U/L (46-116); Blood Urea Nitrogen 42 mg/dL (9-23); Chloride 113 mmol/L (98-107); Glucose 153 mg/dL (74-106); Phosphorus 5.3 mg/dL (2.4-5.1); Sodium 148 mmol/L (136-145)
[2024-03-18] MEDS: AMIODARONE 450mg/250ml AE 250 ML IV SCH ×2 (09:20→15:15)
[2024-03-18 09:23] LABS: INR 1.19 (0.9-1.15); Partial Thromboplastin Time 33.3 SEC (24.5-34.5); Prothrombin Time 12.5 sec (9.3-11.8)
[2024-03-18] MEDS: fentaNYL Drip 2500mCg/250mlNS 250 ML IV ONE (09:58)
[2024-03-18] MEDS: AMIODARONE 450mg/250ml AE 250 ML IV ONE (09:58)
[2024-03-18] MEDS: MIDAZOLAM DRIP 50 mg/50mL 50 ML IV ONE (10:02)
[2024-03-18 10:15] LABS: Alanine Aminotransferase 19 U/L (7-40); Anion Gap 9 (5-15); Aspartate Aminotransferase 17 U/L (13-40); BUN/Creatinine Ratio 17.9 (10.0-20.0); Calcium 9.7 mg/dL (8.7-10.4); Carbon Dioxide 26 mmol/L (20-31); Magnesium 2.3 mg/dL (1.6-2.6); Potassium 4.5 mmol/L (3.5-5.1)
[2024-03-18 10:16] LABS: Albumin 4.2 g/dL (3.2-4.8); Bilirubin, Total 0.6 mg/dL (0.2-1.0); Total Protein 7.1 g/dL (5.7-8.2)
[2024-03-18 10:17] LABS: Alkaline Phosphatase 149 U/L (46-116); Blood Urea Nitrogen 37 mg/dL (9-23); Chloride 112 mmol/L (98-107); Glucose 169 mg/dL (74-106); Sodium 147 mmol/L (136-145)
[2024-03-18 10:38] LABS: Eosinophils # (auto) 0 10 ^3/uL (0-0.8); Eosinophils % (auto) 0.4 % (0.0-7.0); Hemoglobin 9.6 g/dL (13.5-17.5); Lymphocytes # (auto) 0.6 10 ^3/uL (0.4-5.4)
[2024-03-18 10:40] LABS: Basophils # (auto) 0.1 10 ^3/uL (0-0.2); Basophils % (auto) 0.6 % (0.0-2.0); Hematocrit 31.4 % (41.0-53.0); Lymphocytes % (auto) 6.3 % (10.0-50.0); Mean Corpuscular Hemoglobin 33.8 pg (28.0-32.0); Mean Corpuscular Hgb Conc. 30.4 g/dL (32.0-36.0); Mean Corpuscular Volume 111.3 fL (80.0-100.0); Monocytes # (auto) 1.2 10 ^3/uL (0-1.3); Monocytes % (auto) 12.2 % (0.0-12.0); Neutrophils # (auto) 8.2 10 ^3/uL (1.6-8.6); Neutrophils % (auto) 80.5 % (37.0-80.0); Nucleated Red Blood Cells % 0.2 %; Platelet Count (auto) 150 10^3/uL (140-450); Red Blood Cells 2.82 10^6/uL (4.5-5.90); Red Cell Distribution Width 18.6 % (11.8-14.3); White Blood Cell 10.2 10^3/uL (4.4-10.8)
--- NOTE | 2024-03-18 10:57 | DVH ---
CLINICAL INFORMATION: 74 years old, Male; rule out stroke. TECHNIQUE: Axial imaging was obtained through the brain without contrast. Coronal and sagittal refor matted images were obtained, reviewed, and stored. Images were reviewed in brain and bone windows. A ll CT scans at this medical facility are performed using dose modulation techniques as appropriate to a performed exam including the following: Automated exposure control was utilized; adjustment of the MA and/or KV according to patient size; and use of iterative reconstruction technique. CTDIvol = 48.93 mGy DLP = 1018.52 mGy-cm COMPARISON: CT HEAD WITHOUT CONTRAST on DOS: 03/16/24, HEAD WITHOUT CONTRAST on DOS: 01/15/21 FINDINGS: No acute intracranial hemorrhage. No mass effect or midline shift. Multiple small focal ar eas of hypoattenuation in the right frontal lobe, likely sequela of prior ischemia, unchanged. Additi onal scattered areas of hypoattenuation are seen in the periventricular and subcortical white matter, which are nonspecific but most likely sequelae of small vessel ischemic disease. The ventricles and sulci are within normal limits in size for age. Basal cisterns are patent. The calvarium is unrem arkable. Paranasal sinuses and mastoid air cells are clear. Partially visualized endotracheal tube an d orogastric tube. IMPRESSION: 1. No acute intracranial hemorrhage. 2. Nonacute findings as described above, similar to the prior exam. Correlate with clinical findings. If there is concern for acute infarct, MRI could be obtained.
--- NOTE | 2024-03-18 11:04 | DVH ---
CLINICAL INFORMATION: 74 years old, Male; post intubation. TECHNIQUE: Single AP portable chest radiograph was obtained. COMPARISON: XY CHEST XRAY 1 VIEW on DOS: 03/16/24, CHEST PORTABLE on DOS: 01/15/21, CHEST XRAY 1 VIEW on DOS: 01/15/21 FINDINGS: Distal tip of the endotracheal tube is approximately 3 cm above the level of the shaq. Enteric tube reaches the stomach with the tip at the level of the gastric antrum. Bilateral pleural effusions and bilateral airspace opacities are unchanged. No pneumothorax. No other significant interval change. IMPRESSION: 1. Satisfactory positioning of the endotracheal tube and enteric tube. 2. No other significant interval change.
--- NOTE | 2024-03-18 11:43 | RESUS ---
CODE ASSIST ASSESSSMENT Initial Information Code Assist Date: Mar 18, 2024 Location of Arrest: [facility] # 223a Provider Name DR HURT, DR MCGOWAN, DR GUTIERREZ RESIDENT, DR ARSHAD RESIDENT Crash Cart Opened and Supplies: Yes Situation Staff concerned/worried, speci: HR >130, Non-responsive, Change LOC Situation comment: UNRESPONSIVE TO VERBAL OR TACTILE STIMULATION Background Background: SEE CHART Assessment Temperature (Fahrenheit): 97.2 Blood Pressure Systolic: 128 Blood Pressure Diastolic: 82 Respiratory Rate: 22 O2 Sat by Pulse Oximetry: 88 Yunior Spring Mar 18, 2024 11:43
--- NOTE | 2024-03-18 12:19 | DVHPN2 ---
Consult Progress Note Subjective Other Systems: Intubated Objective vital signs Vital Sign Date Time Temp Pulse Resp B/P (MAP) Pulse Ox O2 Delivery O2 Flow Rate FiO2 03/18/24 11:54 122 129/83 03/18/24 11:29 16 100 60 03/18/24 09:19 97.2 97.2 03/17/24 20:00 Nasal Cannula* 6 Total Intake and Output 03/17/24 03/17/24 03/18/24 15:00 23:00 07:00 Intake Total 300 ml 250 ml 0 ml Output Total 1250 ml Balance 300 ml -1000 ml 0 ml medications Current Medications Medications Dose Ordered Sig/Radha Route Start Time Stop Time Status Last Admin Dose Admin Duloxetine HCl 60 mg DAILY PO 03/16/24 10:00 Tamsulosin HCl 0.4 mg QPM PO 03/16/24 18:00 Atorvastatin Calcium 80 mg HS PO 03/15/24 22:00 03/15/24 22:00 80 MG Aspirin 81 mg DAILY PO 03/16/24 10:00 03/18/24 11:52 81 MG Diagnostic Test (Pha) 1 strip IQ4HR 03/16/24 00:00 03/18/24 11:46 1 STRIP Insulin Human Regular IQ4HR SC 03/16/24 00:00 03/18/24 04:40 2 UNITS Dextrose 50 ml UD PRN IV 03/15/24 22:00 Ondansetron HCl 4 mg Q4HP PRN IV 03/15/24 22:00 Topiramate 25 mg BID PO 03/15/24 22:00 03/15/24 22:00 25 MG Enoxaparin Sodium 90 mg Q12HR SC 03/16/24 10:00 03/18/24 11:58 90 MG Ceftriaxone Sodium 50 ml @ 100 mls/hr DAILY@09 IV 03/16/24 09:00 03/18/24 11:28 100 MLS/HR Azithromycin 250 ml @ 125 mls/hr DAILY IV 03/16/24 10:00 03/18/24 12:08 125 MLS/HR Furosemide 40 mg DAILY IV 03/17/24 10:00 03/18/24 11:52 40 MG Dextrose 1,000 ml @ 50 mls/hr Q20H IV 03/17/24 10:30 03/17/24 12:40 50 MLS/HR Metoprolol Tartrate 2.5 mg Q6HR IV 03/17/24 18:00 03/18/24 11:54 2.5 MG Amiodarone HCl 250 ml @ 33.333 mls/ hr Q7H30M IV 03/18/24 09:15 03/18/24 15:14 03/18/24 09:20 33.333 MLS/HR Amiodarone HCl 250 ml @ 16.667 mls/ hr Q15H IV 03/18/24 15:15 Midazolam HCl 50 ml @ 1 mls/hr Q24H IV 03/18/24 08:30 03/18/24 08:33 1 MLS/HR Fentanyl Citrate 250 ml @ 2.5 mls/hr Q24H IV 03/18/24 08:30 03/18/24 08:33 2.5 MLS/HR Examination: CVS:Abnormal (A fib RVR, SVT on amio drip. Murur), NEURO:Abnormal (sedated) laboratory and microbiology Laboratory Tests 03/18/24 09:36 Test 03/18/24 09:36 Range/Units Serum Glucose 169 H 74-106 mg/dL Problem List/Assessment/Plan Problem List/Assessment/Plan Assessment Severe aortic stenosis status post bioprosthetic aortic valve replacement in 2007 Persistent longstanding atrial fibrillation, Stage 3C, on NOAC Eliquis Rule out acute CVA Hypertension Dyslipidemia Status post Gallegos-maze procedure Chronic kidney disease Epk-pasrbsi-ydxhdikxe diabetes mellitus Bed-bound SVT Encephalopathy Plan/Recommendation We will continue with the following plan/recommendations (Dr. Clancy): Transthoracic echocardiogram this admission reveals an EF of 50% with the aortic valve is thickened and calcified, with a high likelihood of severe aortic valve stenosis but no peak or mean gradient or valve area was measured to due to limited study. Considering that there is no gradient or valve area measured, this is a limited study. Unable to confirm aortic valve stenosis. Recommend repeat echocardiogram with appropriate peak/mean gradient and valve area measurements. Patient had episode of AFib with RVR overnight possible SVT. Patient also noted to be nonresponsive to any shift change and ultimately intubated for airway protection. Currently intubated and sedated. CT head negative. Continue amiodarone drip. [id number] VASc score: 5 points, HAS-BLED score: 3 points. Recommend subcutaneous anticoagulation, transition back to NOAC when able to swallow, and beta-nola for rate control. Thank you for allowing us to care for this patient. Please call with any questions or concerns. Continue close monitoring in ICU. Critical care time spent: 45 minutes This medical document was created using an electronic medical record system with voice recognition software and computerized dictation system. Although this document has been carefully reviewed, there might still be some phonetic and typographical errors. Occasional wrong-word or ``sound-alike substitutions may have occurred due to the inherent limitations of voice recognition software. These areas are purely typographical due to imperfections of the software programs and do not reflect any compromise in the patient's medical care. Please read the chart carefully and recognize, using context, where these substitutions have occurred. Plan discussed with: Other (RN at bedside) Date of Service: Mar 18, 2024 Billing Provider: SUSAN GARCIA Common Visit Codes: 59439-[id number] INP/OBS CARE(HIGH), 88183-[id number] CARE 30-74 MIN SUSAN GARCIA Mar 18, 2024 12:19
[2024-03-18 12:47] LABS: Base Excess -3.7 mmol/L (-2.0-3.0)
--- NOTE | 2024-03-18 14:56 | DVHNC2 ---
Intubation Indication: Respiratory Insufficiency, Altered Mental Status Prep: Preoxygenation Pretreated with: Other (etomidate 20) Medicated with: Other (rocuronium 100) Intubation size: cm (8) Informed consent obtained: Yes ( by phone) Risks/benefits/alt described: Yes Notes I wore a surgical cap, mask with protective eyewear, gown and gloves throughout the procedure. The patient was placed on a cardiac rn including continuous pulse oximetry. Rapid Sequence Intubation was conducted. The patient received 20 mg of mg of etomidate for induction and 100 mg of rocuronium for adequate paralysis. Cricoid pressure was maintained from time induction agent was given to time of cuff balloon inflation. Using GlideScope and a size 8 endotracheal tube with stylet, the patient was intubated on the 1st attempt. The stylet was removed and cuff balloon was inflated. Appropriate endotracheal tube position was confirmed by direct visualization of vocal cord passage, fogging of the tube, CO2 colormetric indicator and symmetric breath sounds. The tube was secured at 24 cm at the lips. Post intubation chest x-ray showed adequate position. Date of Service: Mar 18, 2024 Billing Provider: SOLEDAD MCGOWAN MD Common Visit Codes: [id number] INP/OBS CARE (HIGH), PROCEDURE ONLY Procedure Codes: [id number] DILCIA ARSHAD RESIDENT Mar 18, 2024 14:56 SOLEDAD MCGOWAN MD Mar 20, 2024 18:33
--- NOTE | 2024-03-18 14:58 | DVHPNRES ---
Progress Note Date Seen: Mar 18, 2024 Resident Creating Document: DILCIA ARSHAD RESIDENT Medical Necessity Reason Pt with a Central, PICC or Fol: Yes The following are medically ne: Ambriz Catheter Subjective Review of Systems Todd Perry is a 74-year-old male with a PMH of AFib, dyslipidemia, type 2 DM, BPH, COPD, bovine aortic valve replacement, CHF, HTN, CVA recently presented to the ED accompanied by with the chief complaints of altered mental status since on the day of admission Today patient seen and examined at the bedside, patient is un responsive to verbal and tactile stimulation and unable to open the eyes, desaturating at 70s and heart rate in 180s, patient's notified about the patient's condition, advised intubation and agreed to the intubation and intubated. Today afternoon patient came to the hospital and goals of care discussed with the , wants DNR and DNI but wants comfort measures, and she wants to continue intubation until his son arrives today evening and wants to terminate intubation. Objective vital signs Vital Sign Date Time Temp Pulse Resp B/P (MAP) Pulse Ox O2 Delivery O2 Flow Rate FiO2 03/18/24 11:54 122 129/83 03/18/24 11:29 16 100 60 03/18/24 09:19 97.2 97.2 03/17/24 20:00 Nasal Cannula* 6 Total Intake and Output 03/17/24 03/17/24 03/18/24 15:00 23:00 07:00 Intake Total 300 ml 250 ml 0 ml Output Total 1250 ml Balance 300 ml -1000 ml 0 ml medications Current Medications Medications Dose Ordered Sig/Radha Route Start Time Stop Time Status Last Admin Dose Admin Duloxetine HCl 60 mg DAILY PO 03/16/24 10:00 Tamsulosin HCl 0.4 mg QPM PO 03/16/24 18:00 Atorvastatin Calcium 80 mg HS PO 03/15/24 22:00 03/15/24 22:00 80 MG Aspirin 81 mg DAILY PO 03/16/24 10:00 03/18/24 11:52 81 MG Diagnostic Test (Pha) 1 strip IQ4HR 03/16/24 00:00 03/18/24 11:46 1 STRIP Insulin Human Regular IQ4HR SC 03/16/24 00:00 03/18/24 04:40 2 UNITS Dextrose 50 ml UD PRN IV 03/15/24 22:00 Ondansetron HCl 4 mg Q4HP PRN IV 03/15/24 22:00 Topiramate 25 mg BID PO 03/15/24 22:00 03/15/24 22:00 25 MG Enoxaparin Sodium 90 mg Q12HR SC 03/16/24 10:00 03/18/24 11:58 90 MG Ceftriaxone Sodium 50 ml @ 100 mls/hr DAILY@09 IV 03/16/24 09:00 03/18/24 11:28 100 MLS/HR Azithromycin 250 ml @ 125 mls/hr DAILY IV 03/16/24 10:00 03/18/24 12:08 125 MLS/HR Furosemide 40 mg DAILY IV 03/17/24 10:00 03/18/24 11:52 40 MG Dextrose 1,000 ml @ 50 mls/hr Q20H IV 03/17/24 10:30 03/17/24 12:40 50 MLS/HR Metoprolol Tartrate 2.5 mg Q6HR IV 03/17/24 18:00 03/18/24 11:54 2.5 MG Amiodarone HCl 250 ml @ 33.333 mls/ hr Q7H30M IV 03/18/24 09:15 03/18/24 15:14 03/18/24 09:20 33.333 MLS/HR Amiodarone HCl 250 ml @ 16.667 mls/ hr Q15H IV 03/18/24 15:15 Midazolam HCl 50 ml @ 1 mls/hr Q24H IV 03/18/24 08:30 03/18/24 08:33 1 MLS/HR Fentanyl Citrate 250 ml @ 2.5 mls/hr Q24H IV 03/18/24 08:30 03/18/24 08:33 2.5 MLS/HR Morphine Sulfate 1 mg Q1HP PRN IV 03/18/24 13:45 Lorazepam 1 mg Q1HP PRN IV 03/18/24 13:45 Examination General Appearance: unable to obtain due to patient is intubated HEENT: Atraumatic, Mucous membranes dry Respiratory: Clear to auscultation, Normal air movement, mild crackles Cardiovascular: Irregular rate, Normal S1, Normal S2, No murmurs Abdominal: Active bowel sounds, Soft, no distention, no tenderness Extremities: No edema, Normal pulses, No tenderness/swelling Skin: No Significant rash, except past surgical scars Neuro: sensorimotor deficits none Psych/Mental Status: currently intubated laboratory and microbiology Laboratory Tests 03/18/24 09:36 Test 03/18/24 09:36 Range/Units Serum Glucose 169 H 74-106 mg/dL Microbiology Date/Time Source Procedure Growth Status 03/16/24 03:30 Nose MRSA Screen - Final Complete 03/16/24 00:28 Voided Urine Urine Culture - Preliminary Resulted Labs and/or images reviewed: Labs reviewed by me, Image(s) reviewed by me Problem List/Assessment/Plan Problem List/Assessment/Plan # acute hypoxic respiratory failure - currently intubated today morning # rule out acute CVA # acute toxic or metabolic encephalopathy likely due to CVA versus UTI vs hypogicemia # hypoglycemia on presentation - ordered head CT, no acute abnormalities - ordered brain MRI unable to perform due to agitated - carotid Doppler no significant stenosis - ordered UDS, negative - monitor lab # Permanent AFib with RVR with secondary hypercoagulable state - continuously monitoring on telemetry - currently on Lovenox - currently on metoprolol 2.5 mg IV # Chronic, systolic versus diastolic CHF # H/O Bovine aortic valve replacement # ? Severe aortic stenosis - echocardiogram: LVEF 50% with Ritesh, calcified, severe aortic valve stenosis likely. - strict I&Os - fluid restriction - currently on Lasix 40 mg IV - Consulted cardiology for further evaluation. # Acute complicated UTI - evident on urinalysis - ordered urine bacterial culture - currently giving Rocephin # ELIEL likely VMN on CKD - monitor lab - ordered kidney ultrasound - Nephrology consulted evaluated the patient, advised IV Lasix, fluid restriction, low-salt diet, monitor I&Os # Uncontrolled type 2 DM - continuously monitor - currently on Accu-Cheks and moderate ISS Lovenox for now Protonix PLAN: Today patient seen and examined at the bedside, patient is un responsive to verbal and tactile stimulation and unable to open the eyes, desaturating at 70s and heart rate in 180s, patient's notified about the patient's condition, advised intubation and agreed to the intubation and intubated. Today afternoon patient came to the hospital and goals of care discussed with the , wants DNR and DNI but wants comfort measures, and she wants to continue intubation until his son arrives today evening and wants to terminate intubation after her son arrived. Plan discussed with: Patient My Orders My Orders Orders - DILCIA ARSHAD Procedure Category Date Status Time Code Status CODE 03/18/24 Transmitted 14:40 Date of Service: Mar 18, 2024 Billing Provider: SOLEDAD MCGOWAN MD Common Visit Codes: [id number] INP/OBS CARE(HIGH) DILCIA ARSHAD Mar 18, 2024 14:58 SOLEDAD MCGOWAN MD Mar 20, 2024 18:32
--- NOTE | 2024-03-18 15:28 | DVHINCON2 ---
DATE OF CONSULTATION: 03/18/2024 PULMONARY CONSULTATION REASON FOR CONSULTATION: Respiratory failure, vent management. HISTORY OF PRESENT ILLNESS: The patient is an elderly gentleman who was found unresponsive at home. He was found to have a fingerstick of 20. He was intubated also for airway protection. The patient also had undergone cardiac resuscitation. The patient is currently nonresponsive. The patient is having no significant secretions, no fevers reported by bedside RN. The patient has fair urine output. The patient's is at bedside. She is requesting a terminal weaning and comfort care. She is waiting for her son to come. PAST MEDICAL HISTORY: Includes history of aortic stenosis, atrial fibrillation, chronic kidney disease, non-insulin dependent diabetes, history of dyslipidemia, recent CVA, hypertension and a history of bioprosthetic aortic valve replacement and Maze procedure. PAST SURGICAL HISTORY: Maze procedure and aortic valve displacement. REVIEW OF SYSTEMS: Could not be obtained. FAMILY HISTORY: Noncontributory. ALLERGIES: TO TYLENOL, HYDROCODONE, LATEX, PENICILLIN. MEDICATIONS: Reviewed. SOCIAL HISTORY: No current smoking, alcohol or drug use. PHYSICAL EXAMINATION: VITAL SIGNS: Stable. Blood pressure is 128/80, saturations are 99%-100% on 60% FIO2, heart rate was 120. NECK: Supple. No JVD. CHEST: Reveals bilateral basal rales, no wheezing. LUNGS: Diminished air entry at bases. COR: S1, S2 irregular. No murmurs, no gallops. ABDOMEN: Soft, nontender. Bowel sounds normal. EXTREMITIES: No edema or clubbing. LABORATORY WORK: WBC 10, hematocrit 31, platelet count 150, 81% neutrophils. Blood gases: PH 7.31, pCO2 46, pO2 155. This was done on 60% FIO2 assist control, tidal volume 500, PEEP of 5 and rate of 16. Coagulation profile normal. Serum chemistry significant for sodium 147, chloride 112, BUN 37, creatinine 2.07, alkaline phosphatase 149. BNP was 203. Tox screen was negative. Urinalysis, 3+ leukocyte esterase, 2+ glucose, 77 wbcs per high power field. Cultures are pending. IMAGING DATA: The patient had a head CT, which shows no acute intracranial abnormality. There are scattered areas of hypoattenuation, which are unchanged from before. A chest x-ray done this morning reveals endotracheal tube in place. There are bilateral pleural effusions and bilateral airspace opacities. IMPRESSION: Acute respiratory failure, possible changes in mental status, hypoglycemia, may have had aspiration pneumonia. Also, congestive heart failure and fluid overload. In addition, the patient also has urinary tract infection and mild renal insufficiency. The patient has a history of atrial fibrillation and aortic valve replacement. I discussed options. The patient's wants preterminal extubation and comfort care, but is waiting for son to come to the hospital. We will continue to maintain on current vent settings for that time. Once extubated, I would recommend titrate oxygen as tolerated to keep saturations greater than 90 and pain control and anxiety control as needed. The patient's blood pressure somewhat dropping at this time. The patient's son is expected to be here around 6:00 p.m. I have discussed with her as well as bedside RN. If needed, we can try to use Levophed to keep the blood pressure greater than 90 with a systolic blood pressure remains greater than 90 and mean greater than 65 until the decision to terminally wean him is taken. Prognosis is critical. Thank you for asking me to see this patient. MD MARY De Leon/FREDERICK TID: [id number] RECEIPT: [id number] cc: Gino Nahs MD
[2024-03-18] MEDS: PHENYLEPHRINE IV 250 ML IV SCH (15:37)
--- NOTE | 2024-03-18 16:25 | DVHPN2 ---
Progress Note - Dictate Date Seen: Mar 18, 2024 Medical Necessity Reason Pt with a Central, PICC or Fol: Yes The following are medically ne: Ambriz Catheter Subjective transferred to ICU vital signs Vital Sign Date Time Temp Pulse Resp B/P (MAP) Pulse Ox O2 Delivery O2 Flow Rate FiO2 03/18/24 16:07 101 16 106/62 (77) 100 40 03/18/24 09:19 97.2 97.2 03/17/24 20:00 Nasal Cannula* 6 Total Intake and Output 03/17/24 03/17/24 03/18/24 15:00 23:00 07:00 Intake Total 300 ml 250 ml 0 ml Output Total 1250 ml Balance 300 ml -1000 ml 0 ml medications Current Medications Medications Dose Ordered Sig/Radha Route Start Time Stop Time Status Last Admin Dose Admin Duloxetine HCl 60 mg DAILY PO 03/16/24 10:00 Tamsulosin HCl 0.4 mg QPM PO 03/16/24 18:00 Atorvastatin Calcium 80 mg HS PO 03/15/24 22:00 03/15/24 22:00 80 MG Aspirin 81 mg DAILY PO 03/16/24 10:00 03/18/24 11:52 81 MG Diagnostic Test (Pha) 1 strip IQ4HR 03/16/24 00:00 03/18/24 16:23 1 STRIP Insulin Human Regular IQ4HR SC 03/16/24 00:00 03/18/24 04:40 2 UNITS Dextrose 50 ml UD PRN IV 03/15/24 22:00 Ondansetron HCl 4 mg Q4HP PRN IV 03/15/24 22:00 Topiramate 25 mg BID PO 03/15/24 22:00 03/15/24 22:00 25 MG Enoxaparin Sodium 90 mg Q12HR SC 03/16/24 10:00 03/18/24 11:58 90 MG Ceftriaxone Sodium 50 ml @ 100 mls/hr DAILY@09 IV 03/16/24 09:00 03/18/24 11:28 100 MLS/HR Azithromycin 250 ml @ 125 mls/hr DAILY IV 03/16/24 10:00 03/18/24 12:08 125 MLS/HR Furosemide 40 mg DAILY IV 03/17/24 10:00 03/18/24 11:52 40 MG Dextrose 1,000 ml @ 50 mls/hr Q20H IV 03/17/24 10:30 03/18/24 15:56 50 MLS/HR Metoprolol Tartrate 2.5 mg Q6HR IV 03/17/24 18:00 03/18/24 11:54 2.5 MG Amiodarone HCl 250 ml @ 16.667 mls/ hr Q15H IV 03/18/24 15:15 Midazolam HCl 50 ml @ 1 mls/hr Q24H IV 03/18/24 08:30 03/18/24 08:33 1 MLS/HR Fentanyl Citrate 250 ml @ 2.5 mls/hr Q24H IV 03/18/24 08:30 03/18/24 08:33 2.5 MLS/HR Morphine Sulfate 1 mg Q1HP PRN IV 03/18/24 13:45 Lorazepam 1 mg Q1HP PRN IV 03/18/24 13:45 Phenylephrine HCl 250 ml @ 30 mls/hr Q8H20M IV 03/18/24 15:00 03/18/24 15:37 30 MLS/HR objective General-not in any distress HEENT-normocephalic, no icterus, no pallor, neck supple Respiratory-fair air entry bilateral, minimal rales [id number] heard, positive murmur Abdominal-soft, nontender, nondistended Musculoskeletal-no pedal edema, no calf tenderness Genitourinary-deferred Neuro-awake not alert or oriented Psychiatric-not agitated, cooperative, laboratory and microbiology Laboratory Tests 03/18/24 09:36 Test 03/18/24 09:36 Range/Units Serum Glucose 169 H 74-106 mg/dL Assessment/Plan Acute kidney injury on Chronic kidney disease IIIb hemodynamic mediated---follows Dr. Gupta Mild hypernatremia Acute hypoxic respiratory failure Encephalopathy likely metabolic/hypoglycemic---rule out cva CVA hx Hypertension DM anemia iron deficiency Echo shows possible severe , IV Lasix fluid restriction low salt diet Kidney ultrasound no hydronephrosis Monitor Is&Os Goals of care as per family and primary ICU nurse is possible terminal weaning. Plan discussed with: Other LESVIA PEREZ MD Mar 18, 2024 16:25
[2024-03-18] MEDS: LORazepam 2MG/ML-1ML VIAL IV PRN (21:24)
[2024-03-18] MEDS: MORPHINE SULFATE INJ 2 MG/ml SYRG IV PRN (21:26)
[2024-03-18] MEDS ORDERED: HYOSCYAMINE SULF 0.125 MG ODT TAB PO PRN (22:15)
[2024-03-18] MEDS: HYOSCYAMINE SULF 0.125 MG ODT TAB ONE (22:16)
--- NOTE | 2024-03-20 17:36 | DVHDSRES ---
Discharge Summary Date of Admission Resident Creating Document: DILCIA ARSHAD RESIDENT Mar 15, 2024 at 21:51 Date of Discharge: Mar 18, 2024 Admitting Diagnosis Acute metabolic encephalopathy Labs/Diagnostic Data: Laboratory Results Test 03/18/24 19:59 03/18/24 13:23 03/18/24 10:59 03/18/24 09:36 POC Glucose 159 mg/dl (70-106) Troponin I High Sensitivity 21 ng/L (</=54) Blood Gas Specimen Type Arterial Blood Gas Sample Site Right radial Blood Gas Patient Temperature 37.0 Arterial Blood Date Drawn [id number] Arterial Blood pH 7.307 (7.350-7.450) Arterial Blood Partial Pressure CO2 46.1 mmHg (35.0-48.0) Arterial Blood Partial Pressure O2 155.1 mmHg (83.0-108.0) Arterial Blood HCO3 22.5 mmol/L (21.0-28.0) Arterial Blood Oxygen Saturation 99.0 % (94.0-98.0) Arterial Blood Base Excess -3.7 mmol/L (-2.0-3.0) Arterial Blood Oxyhemoglobin 98.5 % (94.0-98.0) Arterial Blood Carboxyhemoglobin 0.4 % (0.5-1.5) Arterial Blood Methemoglobin 0.1 % (0.0-1.5) Salomon Test Modified Blood Gas Total Hemoglobin 9.60 g/dL (13.5-17.5) Blood Gas Set Respiration Rate 16.0 Blood Gas Modality Vent - ac FiO2 % 60.0 Blood Gas Tidal Volume 500.0 Blood Gas PEEP or CPAP 5.0 Blood Gas Critical Value Read Back Yes White Blood Count 10.2 10^3/uL (4.4-10.8) Red Blood Count 2.82 10^6/uL (4.5-5.90) Hemoglobin 9.6 g/dL (13.5-17.5) Hematocrit 31.4 % (41.0-53.0) Mean Corpuscular Volume 111.3 fL (80.0-100.0) Mean Corpuscular Hemoglobin 33.8 pg (28.0-32.0) Mean Corpuscular Hemoglobin Concent 30.4 g/dL (32.0-36.0) Red Cell Distribution Width 18.6 % (11.8-14.3) Platelet Count 150 10^3/uL (140-450) Mean Platelet Volume 11.2 fL (6.9-10.8) Neutrophils (%) (Auto) 80.5 % (37.0-80.0) Lymphocytes (%) (Auto) 6.3 % (10.0-50.0) Monocytes (%) (Auto) 12.2 % (0.0-12.0) Eosinophils (%) (Auto) 0.4 % (0.0-7.0) Basophils (%) (Auto) 0.6 % (0.0-2.0) Neutrophils # (Auto) 8.2 10 ^3/uL (1.6-8.6) Lymphocytes # (Auto) 0.6 10 ^3/uL (0.4-5.4) Monocytes # (Auto) 1.2 10 ^3/uL (0-1.3) Eosinophils # (Auto) 0 10 ^3/uL (0-0.8) Basophils # (Auto) 0.1 10 ^3/uL (0-0.2) Nucleated Red Blood Cells 0.2 % Sodium Level 147 mmol/L (136-145) Potassium Level 4.5 mmol/L (3.5-5.1) Chloride Level 112 mmol/L (98-107) Carbon Dioxide Level 26 mmol/L (20-31) Anion Gap 9 (5-15) Blood Urea Nitrogen 37 mg/dL (9-23) Creatinine 2.07 mg/dL (0.700-1.30) Glomerular Filtration Rate Calc 33 mL/min (>90) BUN/Creatinine Ratio 17.9 (10.0-20.0) Serum Glucose 169 mg/dL (74-106) Calcium Level 9.7 mg/dL (8.7-10.4) Magnesium Level 2.3 mg/dL (1.6-2.6) Total Bilirubin 0.6 mg/dL (0.2-1.0) Aspartate Amino Transferase (AST) 17 U/L (13-40) Alanine Aminotransferase (ALT) 19 U/L (7-40) Alkaline Phosphatase 149 U/L (46-116) Total Protein 7.1 g/dL (5.7-8.2) Albumin 4.2 g/dL (3.2-4.8) Test 12/14/24 08:51 03/18/24 08:37 03/18/24 04:29 03/16/24 06:48 Blood Gas Liter Flow 15.00 Blood Gas Notified Whom Vince gee Blood Gas Notified Time [id number] Blood Gas Notified By Marleen judd Prothrombin Time 12.5 sec (9.3-11.8) Prothrombin Time INR 1.19 (0.9-1.15) Activated Partial Thromboplast Time 33.3 SEC (24.5-34.5) Lactic Acid Level 1.4 mmol/L (0.4-2.0) Ammonia 27 umol/L (11-32) Phosphorus Level 5.3 mg/dL (2.4-5.1) Iron Level 31 ug/dL (65-175) Total Iron Binding Capacity 267 ug/dL (250-425) Percent Iron Saturation 11.6 % (20-55) Ferritin 76.4 ng/mL (22-322) Hemoglobin A1c 5.5 % A1C (<5.7) B-Type Natriuretic Peptide 203.53 pg/mL (0-100) Vitamin B12 Level 582 pg/mL (211-911) Vitamin D 25-Hydroxy 40.2 ng/mL (30.0-100) Thyroid Stimulating Hormone (TSH) 2.12 uIU/mL (0.55-4.78) Plasma/Serum Blood Alcohol < 3.0 mg/dL (<10) Test 03/16/24 00:28 Urine Color Light-yellow (Yellow) Urine Clarity Turbid (Clear) Urine pH 5.0 (5.0-9.0) Urine Specific [place] 1.010 (1.001-1.035) Urine Protein Trace (Negative) Urine Ketones Negative (Negative) Urine Blood 1+ /uL (Negative) Urine Nitrite Negative (Negative) Urine Bilirubin Negative (Negative) Urine Urobilinogen Normal mg/dL (Negative) Urine Leukocyte Esterase 3+ /uL (Negative) Urine RBC 16 /hpf (0 - 3) Urine WBC 77 /hpf (0 - 3) Urine WBC Clumps Present /hpf (None Seen) Urine Squamous Epithelial Cells Few /hpf (<5) Urine Amorphous Crystals Few /hpf (None Seen) Urine Bacteria Few /hpf (None Seen) Urine Mucus Few (None Seen) Urine Glucose 2+ mg/dL (Normal) Urine Opiates Screen Neg (NEGATIVE) Urine Fentanyl Screen Neg (NEGATIVE) Urine Barbiturates Screen Neg (NEGATIVE) Urine Phencyclidine Screen Neg (NEGATIVE) Urine Amphetamines Screen Neg (NEGATIVE) Urine Benzodiazepines Screen Neg (NEGATIVE) Urine Cocaine Screen Neg (NEGATIVE) Urine Cannabinoids Screen Neg (NEGATIVE) Other Laboratory Tests 03/18/24 09:36 Brief Hx & Hospital Course: Todd Perry is a 74-year-old male patient who presents to the ED accompanied by with the chief complaints of altered mental status, associated with generalized weakness, fatigue, difficulty in urination and glycemia value of 20. Patient is poor historian due to his clinical status so history taken from , per patient recently diagnosed as stroke during February 22 2024, after that he has was discharged home where he was ambulating poorly with a walker. Patient's also reports 4-5 days back he had mechanical fall while ambulating and is uncertain if patient presented head trauma. Review of system can not be obtained due to clinical status. Past medical history: AFib, dyslipidemia, type 2 DM, BPH, COPD, bovine aortic valve replacement, CHF, HTN, CVA, CKD stage 3, depression, polyneuropathy, GERD Surgical history: SAVR in 2018, right and left thoracotomy in different occasions, multiple shoulder surgeries Family history: Reviewed, noncontributory Social history: Lives with family. Denies smoking, alcohol and other drug abuse Allergies: Acetaminophen, hydrocodone, latex, penicillin, shellfish Home medication: Apixaban 5 mg p.o. b.i.d., aspirin 81 mg p.o. daily, atorvastatin 80 mg p.o. daily, duloxetine 60 mg p.o. b.i.d., glipizide 2.5 mg p.o. daily, metoprolol 50 mg p.o. daily, pantoprazole 40 mg p.o. daily, pregabalin 150 mg p.o. t.i.d., tamsulosin 0.4 mg p.o. daily, topiramate 25 mg p.o. b.i.d. Brief hospital course: Probable metabolic encephalopathy secondary to complicated UTI and hypoglycemia, versus questionable acute CVA associated with ELIEL on CKD nonsustained monomorphic V-tach and AFib RVR, requiring on admission empiric IV antibiotic, IV fluids, IV dextrose, IV beta-blockers and NPO. Completed head CT which rule out acute intracranial pathology, patient could not complete head MRI since patient was agitated and can not stay still for the completion of complementary workup. Evaluated by altitude chamber technician and Cardiology optimize medical treatment. Wednesday03/18/2024 patient became unresponsive to verbal and tactile stimulation, was not protecting airway, started the saturating to low 70s, required emergent endotracheal intubation because patient initially was full code status and patient was upgraded to ICU. After presenting long discussion with family and next of kin/POA ( Monica), decided to change code status to DNR/DNI, and agreed to terminal weaning. Patient pronounced on 03/18/2024 at 2305hs. Cause of : 1. Cardiopulmonary arrest 2. Acute respiratory failure 3. Metabolic encephalopathy versus CVA DIAGNOSIS Probable acute CVA Acute metabolic encephalopathy likely due to CVA versus UTI vs hypogicemia Acute hypoxic respiratory failure Probable aspiration pneumonia Acute complicated UTI ELIEL likely VMN on CKD Type 2 DM Permanent Atrial fibrillation with RVR (CHADS-VASc 7/has bled 4) secondary hypercoagulability state Nonsustained monomorphic ventricular tachycardia Chronic, systolic versus diastolic CHF Case management discussed with Dr. Nash, patient, Family and nurse Can not complete physical examination at time of since I was not physically here, hospitalist pronounced patient Operations or Procedures CT HEAD WITHOUT CONTRAST IMPRESSION: 1. No acute intracranial hemorrhage. 2. Nonacute findings as described above, similar to the prior exam. Correlate with clinical findings. If there is concern for acute infarct, MRI could be obtained. XY CHEST XRAY 1 VIEW IMPRESSION: 1. Satisfactory positioning of the endotracheal tube and enteric tube. 2. No other significant interval change. CAROTID ARTERIAL DOPPLER 1. No hemodynamically significant stenosis within the carotid arteries. Renal ultrasound IMPRESSION: 1.No hydronephrosis bilaterally. 2. Findings suggestive of chronic kidney disease. CT HEAD WITHOUT CONTRAST No acute intracranial abnormality. ECHO Conclusion Limited images due to patient body habitus. Overall grossly normal left ventricular systolic function at 50%. Normal right ventricular size and dimension. Normal biatrial size and dimension. The aortic valve is thickened and calcific, high likelihood of severe aortic valve stenosis but no gradient or valve area measurement were done due to poor Doppler signal. The mitral valve is thickened there is mild mitral valve regurgitation. The tricuspid valve appears grossly normal. The pulmonary valve could not be visualized. No significant pericardial effusion. Condition at Discharge: Poor Final Diagnosis/Problems List Probable acute CVA Acute metabolic encephalopathy likely due to CVA versus UTI vs hypogicemia Acute hypoxic respiratory failure Probable aspiration pneumonia Acute complicated UTI ELIEL likely VMN on CKD Type 2 DM Permanent Atrial fibrillation with RVR (CHADS-VASc 7/has bled 4) secondary hypercoagulability state Nonsustained monomorphic ventricular tachycardia Chronic, systolic versus diastolic CHF Discharge Disposition: at Hospital Discharge Statement: "Patient was advised to return to the ER or call 911 if any headaches, dizziness, shortness of breath, chest pain, abdominal pain, bleeding, fevers, or worsening of medical condition. Patient was counseled about treatment plan, medications, possible side effects, patientverbalized understanding. All questions were answered to the best of my ability. This discharge took greater then 30 minutes in planning, reviewing documentation, counseling the patient, and discussing with other team members." ASSESSMENT ASSESSMENT Assessment Date of Service: Mar 19, 2024 Billing Provider: SOLEDAD NASH MD Common Visit Codes: 58359-ICP/OBS DISCH DAY >30min DILCIA ARSHAD RESIDENT Mar 20, 2024 17:36 SOLEDAD NASH MD Mar 20, 2024 18:33
--- NOTE | 2024-04-05 11:03 | ECG ---
[facility] Test Date: 2024-03-16 Test Time: 12:03:26 Pat Name: RENETTA KEY Department: Respiratoy Room: [address] [place] [address] A Gender: M Decontaminator: : 1950 Requested By: BONITA SIMPSON Order Number: [id number] Reading MD: Zachary Barnes Measurements Intervals [place] Rate: 100 P: 0 MN: 0 QRS: -15 QRSD: 128 T: 3 QT: 374 QTc: 483 Interpretive Statements Atrial fibrillation Ventricular bigeminy Right bundle branch block Electronically Signed On 04-05-2024 17:52:22 PST by Zachary Barnes Please click the below link to view image of tracing.
--- NOTE | 2024-04-05 11:03 | ECG ---
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
--- NOTE | 2024-04-05 12:24 | ECG ---
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
== END 2024-03-18 22:49 | DRG 64 ==
LOC: EDBD 18:29 → EDUNIT# 18:29 → ER 18:29 → OVERFLOW 21:51 → CENTRAL 21:57 → TELE-CENTR 03-16 23:50 → ICU WEST 03-18 11:00
PROVIDERS: ADMIT Internal Medicine Geriatric Medicine; ATTEND Internal Medicine Geriatric Medicine
PROC: 0BH17EZ Insertion of Endotracheal Airway into Trachea, Via Natural or Artificial Opening (ICD-10-PCS; principal; 2024-03-18)
PROC: 5A1935Z Respiratory Ventilation, Less than 24 Consecutive Hours (ICD-10-PCS; 2024-03-18)
DX: I63.9 Cerebral infarction, unspecified (principal); G93.41 Metabolic encephalopathy; J96.01 Acute respiratory failure with hypoxia; J69.0 Pneumonitis due to inhalation of food and vomit; N17.0 Acute kidney failure with tubular necrosis; N39.0 Urinary tract infection, site not specified; I47.10 Supraventricular tachycardia, unspecified; E87.0 Hyperosmolality and hypernatremia; I48.11 Longstanding persistent atrial fibrillation; I13.0 Hypertensive heart and chronic kidney disease with heart failure and stage 1 through stage 4 chronic kidney disease, or unspecified chronic kidney disease; D68.69 Other thrombophilia; I50.42 Chronic combined systolic (congestive) and diastolic (congestive) heart failure; E11.22 Type 2 diabetes mellitus with diabetic chronic kidney disease; E11.649 Type 2 diabetes mellitus with hypoglycemia without coma; Z66 Do not resuscitate; N40.0 Benign prostatic hyperplasia without lower urinary tract symptoms; E78.5 Hyperlipidemia, unspecified; J44.9 Chronic obstructive pulmonary disease, unspecified; N18.32 Chronic kidney disease, stage 3b; I35.0 Nonrheumatic aortic (valve) stenosis; D50.9 Iron deficiency anemia, unspecified; Z88.0 Allergy status to penicillin; Z91.013 Allergy to seafood; Z88.5 Allergy status to narcotic agent; Z88.6 Allergy status to analgesic agent; Z91.040 Latex allergy status; Z86.73 Personal history of transient ischemic attack (TIA), and cerebral infarction without residual deficits; Z80.0 Family history of malignant neoplasm of digestive organs; Z80.1 Family history of malignant neoplasm of trachea, bronchus and lung; Z82.49 Family history of ischemic heart disease and other diseases of the circulatory system; Z95.3 Presence of xenogenic heart valve; Z79.84 Long term (current) use of oral hypoglycemic drugs; Z74.01 Bed confinement status; Z51.5 Encounter for palliative care
CPT/HCPCS: 36415; 36600; 70450; 71045; 76775; 80048; 80053; 80307; 80320; 81001; 82140; 82306; 82607; 82728; 82805; 82962; 83036; 83540; 83550; 83605; 83735; 83880; 84100; 84132; 84443; 84484; 85025; 85610; 85730; 87070; 87077; 87081; 87086; 87205; 92610; 93005; 93306; 93886; 94002; G0378; J1815

== ENCOUNTER 2024-03-18 22:49 | Inpatient (IN) | payer OTHER ==
[~2024-03-18 22:49] MED LIST changes: +ASPI81CH59 PO; +ATOR-47 PO; -ATOR10TA52 PO; +DULO1CAP6 PO; +GLIP2.5T9 PO; -GLIP5TAB21 PO; -LOSA-533 PO; -LOSA-534 PO; +METO-289 PO; -OXY5T PO; -OXYC-648 PO; -PREG100C PO; +PREG150C63 PO; -TOPI15CA10 PO
== END 2024-03-19 02:48 | DRG 637 ==
LOC: ICU WEST 22:49
PROVIDERS: ADMIT Internal Medicine Geriatric Medicine; ATTEND Internal Medicine Geriatric Medicine
DX: E11.649 Type 2 diabetes mellitus with hypoglycemia without coma (principal); G93.41 Metabolic encephalopathy; J96.01 Acute respiratory failure with hypoxia; J69.0 Pneumonitis due to inhalation of food and vomit; I13.0 Hypertensive heart and chronic kidney disease with heart failure and stage 1 through stage 4 chronic kidney disease, or unspecified chronic kidney disease; N39.0 Urinary tract infection, site not specified; I50.42 Chronic combined systolic (congestive) and diastolic (congestive) heart failure; I48.21 Permanent atrial fibrillation; I47.10 Supraventricular tachycardia, unspecified; D68.59 Other primary thrombophilia; E78.5 Hyperlipidemia, unspecified; N17.0 Acute kidney failure with tubular necrosis; Z66 Do not resuscitate; N40.0 Benign prostatic hyperplasia without lower urinary tract symptoms; J44.9 Chronic obstructive pulmonary disease, unspecified; F32.A Depression, unspecified; K21.9 Gastro-esophageal reflux disease without esophagitis; N18.30 Chronic kidney disease, stage 3 unspecified; E11.22 Type 2 diabetes mellitus with diabetic chronic kidney disease; E11.42 Type 2 diabetes mellitus with diabetic polyneuropathy; I46.9 Cardiac arrest, cause unspecified; Z79.01 Long term (current) use of anticoagulants
CPT/HCPCS: G0378